=== PATIENT | male | born 1940 | race Caucasian/White ===

== ENCOUNTER 2016-09-18 14:55 | Inpatient (IN) | payer MEDICARE ==
[~2016-09-18] VITALS: Ht 172.7 cm; Wt 94.8 kg
[~2016-09-18 14:55] MED LIST changes: -ASPI325T4 PO; -NITR0.4T SL; -PRAS10TA4 PO; +PRAS10TA9 PO
[2016-09-18] MEDS ORDERED: HEPARIN for IV BOLUS 10,000 UNIT/10 ML VIAL. IV PRN ×2 (15:45)
[2016-09-18] MEDS ORDERED: HEPARIN 25,000UTS/500ML PREMIX 500 ML IV PRN (15:45)
[2016-09-18] MEDS ORDERED: HEPARIN for IV BOLUS 10,000 UNIT/10 ML VIAL. IV ONE (15:45)
[2016-09-18 16:52] LABS: BASO % 1 % (0-3); EOS % 1 % (0-3); LYMPH # 1.5 x10^3/uL (1.0-4.8); LYMPH % 32 % (24-48); MEAN CORPUSCULAR HEMOGLOBIN 31 pg (25-35); MEAN CORPUSCULAR HGB CONC 33 g/dL (31-37); MEAN CORPUSCULAR VOLUME 91 fL (79-100); MONO % 9 % (0-9); NEUT % 57 % (31-73); PLATELET COUNT 115 x10^3/uL (140-400); RED BLOOD COUNT 4.61 x10^6/uL (4.30-5.70); RED CELL DISTRIBUTION WIDTH 14.4 % (11.5-14.5); WHITE BLOOD COUNT 4.9 x10^3/uL (4.0-11.0)
[2016-09-18 17:06] LABS: INR 1.3 (0.8-1.1); PROTHROMBIN TIME PATIENT 15.7 SEC (11.7-14.0)
[2016-09-18 17:07] LABS: CALCIUM 9.3 mg/dL (8.5-10.1); CREATININE 1.2 mg/dL (0.7-1.3); GFR 58.7; POTASSIUM 4.6 mmol/L (3.5-5.1)
[2016-09-18] MEDS ORDERED: ONDANSETRON PF 4 MG/2 ML VIAL. IV PRN (17:30)
[2016-09-18] MEDS ORDERED: MORPHINE SULFATE 2 MG/ML DISP.SYRIN. IV PRN (17:30)
[2016-09-18] MEDS ORDERED: ANTI-COAG MONITOR BY PHARMACY. MC PRN (17:45)
[2016-09-18 19:10] VITALS: BP 183/92
[2016-09-18 19:15] VITALS: BP 183/92
[2016-09-18] MEDS ORDERED: ATOR10TA60 PO (20:11)
[2016-09-18] MEDS ORDERED: NITR0.4T SL (20:11)
[2016-09-18] MEDS ORDERED: METF500T4 PO (20:23)
[2016-09-18] MEDS ORDERED: GLYB5TAB3 PO (20:23)
[2016-09-18] MEDS ORDERED: METO25TA4 PO (20:23)
[2016-09-18] MEDS ORDERED: LOSA100T6 PO (20:23)
[2016-09-18] MEDS ORDERED: ASPI325T4 PO (20:23)
--- NOTE | 2016-09-18 21:09 | PHYS DOC ---
Past Medical History Past Medical History: Diabetes-Type II, High Cholesterol, Hypertension, HI Past Surgical History: Appendectomy, Coronary Bypass Surgery, Other Additional Past Surgical Histo: ORAL SX, SKIN CANCER, STENT X9 Alcohol Use: Rarely Drug Use: None Adult General Chief Complaint Chief Complaint: LOWER EXTREMITY SWELLING HPI HPI Patient is a 76 year old male who presents with DVT. The patient reports 2 day history of LLE swelling. Denies significant associated pain or erythema or warmth. Denies chest pain or shortness of breath. His chief recordist Dr. Guardado ordered US which was performed as outpatient, demonstrating extensive LLE DVT. The patient had CABG in 03/2016, no other recent surgeries, hospitalizations, travel. Nonsmoker. Takes aspirin & plavix. No history of DVT/PE. PCP is DR. River. Review of Systems Review of Systems Constitutional: Denies fever or chills Eyes: Denies change in visual acuity HENT: Denies nasal congestion or sore throat Respiratory: Denies cough or shortness of breath Cardiovascular: Denies chest pain GI: Denies abdominal pain, nausea, vomiting, bloody stools or diarrhea Musculoskeletal: Reports LLE swelling Integument: Denies rash or skin lesions Neurologic: Denies headache, focal weakness or sensory changes Allergies Allergies Allergies Coded Allergies Type Severity Reaction Last Updated Verified No Known Drug Allergies 04/02/16 No Physical Exam Physical Exam Constitutional: Well developed, well nourished, no acute distress, non-toxic appearance. HENT: Normocephalic, atraumatic, bilateral external ears normal, oropharynx moist, nose normal. Eyes: PERRLA, EOMI, conjunctiva normal, no discharge. Neck: supple, no stridor. Cardiovascular: RRR, no murmurs, no edema. Lungs & Thorax: LCTAB, no wheezing, no respiratory distress. Abdomen: soft, nontender, nondistended. Skin: Warm, dry, no erythema, no rash. Back: No tenderness. Extremities: No tenderness, no edema. Neurologic: Alert and oriented X 3, no focal deficits noted. Psychologic: Affect normal, judgement normal, mood normal. Current Patient Data Vital Signs Vital Signs Date Time Temp Pulse Resp B/P Pulse Ox O2 Delivery O2 Flow Rate FiO2 09/18/16 15:13 97.7 84 18 172/102 95 Room Air 97.7 EKG EKG [] Radiology/Procedures Radiology/Procedures PROCEDURE: VENOUS LOWER EXTREMITY LEFT PROCEDURE Left lower extremity venous Doppler sonogram. HISTORY Pain. TECHNIQUE Grayscale and color Doppler sonographic imaging of the left lower extremity veins with spectral waveform analysis was performed. COMPARISON None. FINDINGS There is venous thrombus involving the left iliac, common femoral, superficial femoral, peroneal and greater saphenous veins. IMPRESSION Extensive left lower extremity deep and superficial venous thrombosis. This information was communicated to the referring physician, Dr. Guardado, by the president ergonomic consulting at the time of the exam. Electronically signed by: Dayna Oliveira (Sep 18, 2016 14:44:36) DICTATED and SIGNED BY: DAYNA OLIVEIRA MD DATE: 09/18/16 1444 [] Course & Med Decision Making Course & Med Decision Making Pertinent Labs and Imaging studies reviewed. (See chart for details) The patient presents with DVT. Obtained labs. Recommended admission for management of extensive DVT. At this time vitals are stable, not tachycardic or hypoxic, no symptoms of PE. Discussed with Dr. Remy who agrees to admit to inpatient status, requested initiation of lovenox. The patient is admitted in stable condition. [] Dragon Disclaimer Dragon Disclaimer This electronic medical record was generated, in whole or in part, using a voice recognition dictation system. Departure Departure Impression: Primary Impression: Deep venous thrombosis Disposition: ADMITTED INPATIENT Condition: STABLE DEBI SALDANA MD Sep 18, 2016 21:09
[2016-09-18] MEDS ORDERED: ACETAMINOPHEN 325 MG TABLET. PO PRN (22:00)
[2016-09-18] MEDS ORDERED: NITROGLYCERIN SUBLINGUAL 0.4 MG BOTTLE OF 25. SL PRN (22:00)
[2016-09-18] MEDS ORDERED: hydrALAZINE 20 MG/ML VIAL. IVP PRN (22:00)
[2016-09-18] MEDS: glyBURIDE 5 MG TABLET PO SCH (22:25)
[2016-09-18] MEDS: ASPIRIN CHEWABLE 81 MG TABLET. PO SCH (22:25)
[2016-09-18] MEDS: ATORVASTATIN CALCIUM 10 MG TABLET. PO SCH (22:25)
[2016-09-18] MEDS: METOPROLOL TART IMMED RELEASE 25 MG TABLET. PO SCH (22:26)
[2016-09-18] MEDS: LOSARTAN POTASSIUM 50 MG TABLET. PO SCH (22:27)
[2016-09-18 22:46] VITALS: BP 149/76
--- NOTE | 2016-09-18 23:52 | HP ---
ADMIT DATE: 09/18/2016 CHIEF COMPLAINT: Leg swelling. HISTORY OF PRESENT ILLNESS: The patient is a 76-year-old gentleman who had a CABG done here at [facility] in March of last year. He had noticed increased swelling in his lower extremities off and on. He relates that this had been alternating. But, in the past couple of days, he had increased swelling on the left and his decided to call Dr. 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 He was advised to obtain an ultrasound of the lower extremities to rule out a DVT. This was done today on an outpatient basis, he indeed was found to have extensive left lower extremity deep and superficial venous thrombosis from the left ___ and greater saphenous veins all the way up to the left iliac. He was therefore admitted for further management and care. The patient denies any shortness of breath, any pain in his leg, any abdominal pain or other symptoms. PAST MEDICAL HISTORY: CAD, status post cath with stents as well as CABG in 03/2016, hypertension, diabetes mellitus, hypercholesterolemia. He is status post appendectomy and skin cancer removal. FAMILY HISTORY: Mother with probable fatal ID at age 82. No family history of DVTs or PEs. SOCIAL HISTORY: No toxic habits, never smoked. ALLERGIES: No known drug allergies. MEDICATIONS: MAR reconciled with home medications. REVIEW OF SYSTEMS: Save for leg swelling, the patient currently does not have any symptoms in entire organ system review. PHYSICAL EXAMINATION: VITAL SIGNS: From today show a blood pressure of currently 183/92, heart rate of 78, respiratory rate at 18. He is afebrile, satting 96% on room air. GENERAL: This is a well-nourished 76-year-old gentleman, alert and oriented, in no acute distress. HEENT: Shows no scleral icterus. NECK: Supple. LUNGS: Clear to auscultation bilaterally. HEART: Has regular rate and rhythm without any murmurs. ABDOMEN: Has positive bowel sounds, soft, nontender. EXTREMITIES: Show 1+ edema in the left lower extremity to mid [place]. SKIN: Warm, soft and dry. A Few petechiae noted on the left distal lower extremity. LABORATORY DATA: CBC with a WBC of 4.9, hemoglobin 14, platelets of 115. Of note, platelets have been low in March as well in the 77-132 range. Chemistries with a BUN and creatinine of 28 and 1.2, normal electrolytes, glucose at 105. Coags today with an INR of 1.7. ASSESSMENT AND PLAN: The patient is a 76-year-old gentleman with apparently unprovoked deep vein thrombosis in his lower extremity. He denies any injury, recent surgery or immobility. Without any family history, suspicion of likelihood of familial disorder is essentially none. I would place him on anticoagulation for 3-6 months. Although, this can be treated on an outpatient basis right from the start, we have admitted him as his clot burden in his big vein is this significant and risk for PE high. After 24 hours on Lovenox, he should be stable enough to mobilize and be discharged to home. Coumadin would be one choice versus a Xa inhibitor such as Pradaxa. Latter would be preferable if his insurance is amenable to pay. We will reevaluate in the morning and check with pharmacy. For his recent heart history, all his home medications will be continued. For his high blood pressure, he missed his evening dose of Lopressor, will give that. Monitor blood pressure, has hydralazine p.r.n. available as well. Diabetes is currently well controlled. We will continue oral medications for now. ENA DALE MD DR: RICARDO/nts JOB#: [id number] / [id number] KRISTIAN Valenzuela MD, Richard MTDD
[2016-09-19 02:58] VITALS: BP 146/84
[2016-09-19 04:10] LABS: BASO % 0 % (0-3); EOS % 2 % (0-3); HEMATOCRIT 41.4 % (39.0-53.0); HEMOGLOBIN 13.6 g/dL (13.0-17.5); LYMPH # 1.7 x10^3/uL (1.0-4.8); LYMPH % 38 % (24-48); MEAN CORPUSCULAR HEMOGLOBIN 30 pg (25-35); MEAN CORPUSCULAR HGB CONC 33 g/dL (31-37); MEAN CORPUSCULAR VOLUME 92 fL (79-100); MONO % 10 % (0-9); NEUT % 50 % (31-73); PLATELET COUNT 103 x10^3/uL (140-400); RED CELL DISTRIBUTION WIDTH 14.7 % (11.5-14.5); WHITE BLOOD COUNT 4.5 x10^3/uL (4.0-11.0)
[2016-09-19 04:17] LABS: CALCIUM 9.1 mg/dL (8.5-10.1); CREATININE 1.2 mg/dL (0.7-1.3); GFR 58.7; POTASSIUM 3.8 mmol/L (3.5-5.1)
[2016-09-19 07:45] VITALS: BP 156/92
[2016-09-19] MEDS: METFORMIN 500 MG TABLET. PO SCH ×2 (08:00→16:19)
[2016-09-19] MEDS: METOPROLOL TART IMMED RELEASE 25 MG TABLET. PO SCH ×2 (08:37→21:07)
--- NOTE | 2016-09-19 09:39 | PDOC2 ---
MIROSLAVA FAY TELEVISION TUBE INSPECTOR 09/19/16 0939: CARDIAC CONSULT DATE OF CONSULT Date of Consult DATE: 09/19/16 TIME: 09:28 REASON FOR CONSULT Reason for Consult: DVT; pt requested REFERRING PHYSICIAN Referring Physician: Dr. Remy SOURCE Source: Chart review, Patient HISTORY OF PRESENT ILLNESS HISTORY OF PRESENT ILLNESS This is a 76 yo male, well known to our service, who recently underwent CABG X 3 with SMITH to LAD, SVG to RPDA and SVG to OM2, who contacted our office with complaints of LLE swelling for the last couple of days. Denies any pain, numbness, or tingling in the affected extremity. Patient was scheduled for outpatient lower-extremity doppler, which revealed extensive DVT in the LLE. Patient was referred to the ED for further treatment. Patient denies any SOA, UGZMAN, dizziness, chest pain, or palpitations. No recent travel. 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 Reports he has been feel very well recently, aside from the LLE edema. PAST MEDICAL HISTORY Cardiovascular: CAD (s/p previous stenting and CABG), HTN, Hyperlipidemia Pulmonary: No pertinent hx GI: No pertinent hx Heme/Onc: No pertinent hx Hepatobiliary: No pertinent hx Psych: No pertinent hx Musculoskeletal: Osteoarthritis Rheumatologic: No pertinent hx Infectious disease: No pertinent hx ENT: No pertinent hx Renal/: No pertinent hx Endocrine: Diabetes Dermatology: No pertinent hx PAST SURGICAL HISTORY Past Surgical History: Appendectomy, CABG (CABG X 3 with SMITH to LAD, SVG to RPDA and SVG to OM2), Total knee replacement (left ), Colectomy FAMILY HISTORY Family History: Cancer, Coronary Artery Disease SOCIAL HISTORY Smoke: No ALCOHOL: none Drugs: None Lives: with Family CURRENT MEDICATIONS CURRENT MEDICATIONS Current Medications Medications (Trade) Dose Ordered Sig/Heriberto Route PRN Reason Start Time Stop Time Status Last Admin Dose Admin Enoxaparin Sodium (Lovenox 100mg Syringe) 100 mg 1X ONCE SQ 09/18/16 16:00 09/18/16 16:01 DC 09/18/16 17:11 Enoxaparin Sodium (Lovenox 100mg Syringe) 100 mg Q12HR SQ 09/18/16 23:00 09/19/16 08:40 Info (Anti-Coagulation Monitoring By Pharmacy) 1 each PRN DAILY PRN MC SEE COMMENTS 4/25/17 17:45 09/19/16 08:45 Aspirin (Children'S Aspirin) 81 mg HS PO 09/18/16 22:15 09/18/16 22:25 Atorvastatin Calcium (Lipitor) 10 mg HS PO 09/18/16 22:15 09/18/16 22:25 Glyburide (Diabeta) 5 mg HS PO 09/18/16 22:15 09/18/16 22:25 Metoprolol Tartrate (Lopressor) 25 mg BID PO 09/18/16 22:15 09/19/16 08:37 Losartan Potassium (Cozaar) 100 mg HS PO 09/18/16 22:15 09/18/16 22:27 ALLERGIES ALLERGIES: Coded Allergies: No Known Drug Allergies (Unverified , 04/02/16) ROS Review of System 14 point ROS conducted with pertinent positives noted above in HPI. PHYSICAL EXAM General: Alert, Oriented X3, Cooperative HEENT: Atraumatic, Mucous membr. moist/pink Lungs: Clear to auscultation, Normal air movement Heart: Regular rate, Normal S1, Normal S2 Abdomen: Soft, No tenderness Extremities: Normal pulses, Other (1-2+ LLE edema ) Skin: No breakdown, No significant lesion Neuro: Normal speech, Sensation intact Psych/Mental Status: Mental status NL, Mood NL MUSCULOSKELETAL: Osteoarthritic changes both hands VITALS VITALS Vital Signs Date Time Temp Pulse Resp B/P Pulse Ox O2 Delivery O2 Flow Rate FiO2 09/19/16 08:37 76 156/92 09/19/16 07:51 Room Air 09/19/16 07:45 97.9 20 96 97.9 LABS Lab: Laboratory Tests Test 09/18/16 16:38 09/19/16 03:03 09/19/16 03:05 White Blood Count 4.9x10^3/uL (4.0-11.0) 4.5x10^3/uL (4.0-11.0) Red Blood Count 4.61x10^6/uL (4.30-5.70) 4.50x10^6/uL (4.30-5.70) Hemoglobin 14.0g/dL (13.0-17.5) 13.6g/dL (13.0-17.5) Hematocrit 42.0% (39.0-53.0) 41.4% (39.0-53.0) Mean Corpuscular Volume 91fL (79-100) 92fL (79-100) Mean Corpuscular Hemoglobin 31pg (25-35) 30pg (25-35) Mean Corpuscular Hemoglobin Concent 33g/dL (31-37) 33g/dL (31-37) Red Cell Distribution Width 14.4% (11.5-14.5) 14.7% (11.5-14.5) Platelet Count 115x10^3/uL (140-400) 103x10^3/uL (140-400) Neutrophils (%) (Auto) 57% (31-73) 50% (31-73) Lymphocytes (%) (Auto) 32% (24-48) 38% (24-48) Monocytes (%) (Auto) 9% (0-9) 10% (0-9) Eosinophils (%) (Auto) 1% (0-3) 2% (0-3) Basophils (%) (Auto) 1% (0-3) 0% (0-3) Neutrophils # (Auto) 2.8x10^3uL (1.8-7.7) 2.2x10^3uL (1.8-7.7) Lymphocytes # (Auto) 1.5x10^3/uL (1.0-4.8) 1.7x10^3/uL (1.0-4.8) Monocytes # (Auto) 0.4x10^3/uL (0.0-1.1) 0.5x10^3/uL (0.0-1.1) Eosinophils # (Auto) 0.1x10^3/uL (0.0-0.7) 0.1x10^3/uL (0.0-0.7) Basophils # (Auto) 0.0x10^3/uL (0.0-0.2) 0.0x10^3/uL (0.0-0.2) Prothrombin Time 15.7SEC (11.7-14.0) Prothromb Time International Ratio 1.3 (0.8-1.1) Activated Partial Thromboplast Time 37SEC (24-38) Sodium Level 138mmol/L (136-145) 140mmol/L (136-145) Potassium Level 4.6mmol/L (3.5-5.1) 3.8mmol/L (3.5-5.1) Chloride Level 103mmol/L (98-107) 104mmol/L (98-107) Carbon Dioxide Level 25mmol/L (21-32) 27mmol/L (21-32) Anion Gap 10 (6-14) 9 (6-14) Blood Urea Nitrogen 28mg/dL (8-26) 24mg/dL (8-26) Creatinine 1.2mg/dL (0.7-1.3) 1.2mg/dL (0.7-1.3) Estimated GFR (Cockcroft-Gault) 58.7 58.7 Glucose Level 105mg/dL (70-99) 64mg/dL (70-99) Calcium Level 9.3mg/dL (8.5-10.1) 9.1mg/dL (8.5-10.1) ECHOCARDIOGRAM ECHOCARDIOGRAM DATE: 03/30/16 1632 <Conclusion> Limmited 2D echo. Basal inferior and posterior wall hypokinesis with ejection fraction estimated at 50-55%. Doppler and Color Flow revealed mild aortic regurgitation. There is no evidence of significant pericardial effusion. DATE: 03/28/16 1442 <Conclusion> Hypokinetic basal inferior and posterior james. The Ejection Fraction is 55%. Transmitral Doppler flow pattern is Grade I-abnormal relaxation pattern. Mild aortic regurgitation. Trace tricuspid regurgitation. There is no evidence of significant pericardial effusion. HEART CATH HEART CATH FINDINGS 1. Hemodynamics: Left ventricular end-diastolic pressure 23 mmHg. No pullback gradient across the aortic valve. 2. Left ventriculography: Diaphragmatic wall hypokinesis with ejection fraction estimated at 55%. No significant mitral regurgitation seen. 3. Coronary angiography: a. The left main coronary artery arose from the left sinus of Valsalva, gave rise to the left anterior descending and left circumflex arteries and did not show any significant stenosis. b. The left anterior descending artery showed 70% stenosis in the proximal segment. The previously placed stent in the midsegment showed a discrete shelflike 80% in-stent restenosis. The previously placed stent in the diagonal branch was patent. c. The left circumflex artery showed widely patent stent in the midsegment. Just proximal to this stent there was a 60% stenosis noted. There was a widely patent stent noted in the. Was marginal branch. The second obtuse marginal branch showed 50% stenosis in the proximal segment. d. The right coronary artery was a dominant vessel arising from the right sinus of Valsalva that showed a long stented proximal and mid segments that showed 30% in-stent restenosis in the proximal to midsegment. The distal segment showed several areas of critical 90-95% stenoses in the proximal segment of the posterior descending branch showed 95-99% stenosis. There appeared to be thrombus within the distal RCA. Conclusion 1. Severe three-vessel coronary artery disease as described above 2. Diaphragmatic wall hypokinesis with ejection fraction estimated at 50-55%. DATE: 03/30/16922 ASSESSMENT/PLAN ASSESSMENT/PLAN 1. DVT Extensive clot involving LLE on treatment dose Lovenox OAC to begin today continued management per PCP 2. CAD s/p CABG X 3 with SMITH to LAD, SVG to RPDA and SVG to OM2 04/02/16 stable. CP free continue secondary prevention measures 3. HTN home antiHTN therapy resumed 4. HLD LDLs = 71 continue statin therapy 5. DM, II oral control agents 6. carotid disease, mild to moderate, < 50% bilaterally Problems: KRISTIAN DE JESUS MD 09/19/16 5909: CARDIAC CONSULT ALLERGIES ALLERGIES: Coded Allergies: No Known Drug Allergies (Unverified , 04/02/16) ASSESSMENT/PLAN ASSESSMENT/PLAN Patient seen and examined. Agree with METER INSPECTOR's assessment and plan. Patient with recent CABG has been admitted with acute left lower extremity DVT. Continue anticoagulation per IM. CAD status appears stable. Telemetry did not show any significant arrhythmia so far. Continue current medical regimen. Thank you for your consultation.. Problems: MIROSLAVA FAY APRN Sep 19, 2016 09:39 KRISTIAN DE JESUS MD Sep 19, 2016 16:49
[2016-09-19 10:58] VITALS: BP 166/91
[2016-09-19] MEDS ORDERED: WARFARIN 5 MG TABLET. PO ONE (14:15)
--- NOTE | 2016-09-19 14:17 | PDOC ---
PROGRESS NOTES Chief Complaint Chief Complaint cc: Lower extremity edema, DVT HTN Diabetes mellitus CAD with prior CABG and PCI/stents prior Skin cancer s/p resections Hypercholesterolemia History of Present Illness History of Present Illness Patient seen and evaluated at bedside. Patient resting in no apparent distress. Patient notes decreased swelling to his legs. No complaints at this time. d/w nurse about plan of care. Vitals Vitals Vital Signs Date Time Temp Pulse Resp B/P Pulse Ox O2 Delivery O2 Flow Rate FiO2 09/19/16 10:58 97.8 71 18 166/91 96 Room Air 97.8 Physical Exam General: Alert, Oriented X3, Cooperative Heart: Regular rate, Normal S1, Normal S2 Lungs: Clear, Other (negative chest retractions and/or other accessory muscle use. ) Abdomen: Soft, No tenderness Extremities: Normal pulses, Other (1-2+ LLE edema, improved. No warmth to the touch. Negative calf tenderness to palpation bilaterally. ) Skin: No breakdown, No significant lesion Labs LABS Laboratory Tests Test 09/18/16 16:38 09/19/16 03:03 09/19/16 03:05 White Blood Count 4.9x10^3/uL (4.0-11.0) 4.5x10^3/uL (4.0-11.0) Red Blood Count 4.61x10^6/uL (4.30-5.70) 4.50x10^6/uL (4.30-5.70) Hemoglobin 14.0g/dL (13.0-17.5) 13.6g/dL (13.0-17.5) Hematocrit 42.0% (39.0-53.0) 41.4% (39.0-53.0) Mean Corpuscular Volume 91fL (79-100) 92fL (79-100) Mean Corpuscular Hemoglobin 31pg (25-35) 30pg (25-35) Mean Corpuscular Hemoglobin Concent 33g/dL (31-37) 33g/dL (31-37) Red Cell Distribution Width 14.4% (11.5-14.5) 14.7% (11.5-14.5) Platelet Count 115x10^3/uL (140-400) 103x10^3/uL (140-400) Neutrophils (%) (Auto) 57% (31-73) 50% (31-73) Lymphocytes (%) (Auto) 32% (24-48) 38% (24-48) Monocytes (%) (Auto) 9% (0-9) 10% (0-9) Eosinophils (%) (Auto) 1% (0-3) 2% (0-3) Basophils (%) (Auto) 1% (0-3) 0% (0-3) Neutrophils # (Auto) 2.8x10^3uL (1.8-7.7) 2.2x10^3uL (1.8-7.7) Lymphocytes # (Auto) 1.5x10^3/uL (1.0-4.8) 1.7x10^3/uL (1.0-4.8) Monocytes # (Auto) 0.4x10^3/uL (0.0-1.1) 0.5x10^3/uL (0.0-1.1) Eosinophils # (Auto) 0.1x10^3/uL (0.0-0.7) 0.1x10^3/uL (0.0-0.7) Basophils # (Auto) 0.0x10^3/uL (0.0-0.2) 0.0x10^3/uL (0.0-0.2) Prothrombin Time 15.7SEC (11.7-14.0) Prothromb Time International Ratio 1.3 (0.8-1.1) Activated Partial Thromboplast Time 37SEC (24-38) Sodium Level 138mmol/L (136-145) 140mmol/L (136-145) Potassium Level 4.6mmol/L (3.5-5.1) 3.8mmol/L (3.5-5.1) Chloride Level 103mmol/L (98-107) 104mmol/L (98-107) Carbon Dioxide Level 25mmol/L (21-32) 27mmol/L (21-32) Anion Gap 10 (6-14) 9 (6-14) Blood Urea Nitrogen 28mg/dL (8-26) 24mg/dL (8-26) Creatinine 1.2mg/dL (0.7-1.3) 1.2mg/dL (0.7-1.3) Estimated GFR (Cockcroft-Gault) 58.7 58.7 Glucose Level 105mg/dL (70-99) 64mg/dL (70-99) Calcium Level 9.3mg/dL (8.5-10.1) 9.1mg/dL (8.5-10.1) Review of Systems Review of Systems (+) b/l lower extremity edema Denies chest pain, palpitations, sob, abdominal pain, n/v/d, or fever/chills. Assessment and Plan Assessmemt and Plan Problems Medical Problems: (1) Deep venous thrombosis Status: Acute (2) DVT (deep venous thrombosis) Status: Acute Assessment: 1.) LLE deep and superficial venous thrombosis 2.) CAD, prior CABG and PCI stenting 3.) Diabetes Mellitus type II 4.) HTN 5.) HLD Plan: 1.) continue therapeutic lovenox, bridge to coumadin 5mg PO today. Pharmacy to dose thereafter 2.) continue telemetry monitoring 3.) continue home medications as appropriate 4.) limit mobility secondary to clot burden 5.) check AM labs. 6.) appreciate subspecialty input 7.) probable discharge tomorrow is sufficiently anticoagulated. Problems: Comment Review of Relevant I have reviewed the following items emily (where applicable) has been applied. Labs Laboratory Tests Test 09/18/16 16:38 09/19/16 03:03 09/19/16 03:05 White Blood Count 4.9x10^3/uL (4.0-11.0) 4.5x10^3/uL (4.0-11.0) Red Blood Count 4.61x10^6/uL (4.30-5.70) 4.50x10^6/uL (4.30-5.70) Hemoglobin 14.0g/dL (13.0-17.5) 13.6g/dL (13.0-17.5) Hematocrit 42.0% (39.0-53.0) 41.4% (39.0-53.0) Mean Corpuscular Volume 91fL (79-100) 92fL (79-100) Mean Corpuscular Hemoglobin 31pg (25-35) 30pg (25-35) Mean Corpuscular Hemoglobin Concent 33g/dL (31-37) 33g/dL (31-37) Red Cell Distribution Width 14.4% (11.5-14.5) 14.7% (11.5-14.5) Platelet Count 115x10^3/uL (140-400) 103x10^3/uL (140-400) Neutrophils (%) (Auto) 57% (31-73) 50% (31-73) Lymphocytes (%) (Auto) 32% (24-48) 38% (24-48) Monocytes (%) (Auto) 9% (0-9) 10% (0-9) Eosinophils (%) (Auto) 1% (0-3) 2% (0-3) Basophils (%) (Auto) 1% (0-3) 0% (0-3) Neutrophils # (Auto) 2.8x10^3uL (1.8-7.7) 2.2x10^3uL (1.8-7.7) Lymphocytes # (Auto) 1.5x10^3/uL (1.0-4.8) 1.7x10^3/uL (1.0-4.8) Monocytes # (Auto) 0.4x10^3/uL (0.0-1.1) 0.5x10^3/uL (0.0-1.1) Eosinophils # (Auto) 0.1x10^3/uL (0.0-0.7) 0.1x10^3/uL (0.0-0.7) Basophils # (Auto) 0.0x10^3/uL (0.0-0.2) 0.0x10^3/uL (0.0-0.2) Prothrombin Time 15.7SEC (11.7-14.0) Prothromb Time International Ratio 1.3 (0.8-1.1) Activated Partial Thromboplast Time 37SEC (24-38) Sodium Level 138mmol/L (136-145) 140mmol/L (136-145) Potassium Level 4.6mmol/L (3.5-5.1) 3.8mmol/L (3.5-5.1) Chloride Level 103mmol/L (98-107) 104mmol/L (98-107) Carbon Dioxide Level 25mmol/L (21-32) 27mmol/L (21-32) Anion Gap 10 (6-14) 9 (6-14) Blood Urea Nitrogen 28mg/dL (8-26) 24mg/dL (8-26) Creatinine 1.2mg/dL (0.7-1.3) 1.2mg/dL (0.7-1.3) Estimated GFR (Cockcroft-Gault) 58.7 58.7 Glucose Level 105mg/dL (70-99) 64mg/dL (70-99) Calcium Level 9.3mg/dL (8.5-10.1) 9.1mg/dL (8.5-10.1) Laboratory Tests Test 09/18/16 16:38 09/19/16 03:03 09/19/16 03:05 White Blood Count 4.9x10^3/uL (4.0-11.0) 4.5x10^3/uL (4.0-11.0) Red Blood Count 4.61x10^6/uL (4.30-5.70) 4.50x10^6/uL (4.30-5.70) Hemoglobin 14.0g/dL (13.0-17.5) 13.6g/dL (13.0-17.5) Hematocrit 42.0% (39.0-53.0) 41.4% (39.0-53.0) Mean Corpuscular Volume 91fL (79-100) 92fL (79-100) Mean Corpuscular Hemoglobin 31pg (25-35) 30pg (25-35) Mean Corpuscular Hemoglobin Concent 33g/dL (31-37) 33g/dL (31-37) Red Cell Distribution Width 14.4% (11.5-14.5) 14.7% (11.5-14.5) Platelet Count 115x10^3/uL (140-400) 103x10^3/uL (140-400) Neutrophils (%) (Auto) 57% (31-73) 50% (31-73) Lymphocytes (%) (Auto) 32% (24-48) 38% (24-48) Monocytes (%) (Auto) 9% (0-9) 10% (0-9) Eosinophils (%) (Auto) 1% (0-3) 2% (0-3) Basophils (%) (Auto) 1% (0-3) 0% (0-3) Neutrophils # (Auto) 2.8x10^3uL (1.8-7.7) 2.2x10^3uL (1.8-7.7) Lymphocytes # (Auto) 1.5x10^3/uL (1.0-4.8) 1.7x10^3/uL (1.0-4.8) Monocytes # (Auto) 0.4x10^3/uL (0.0-1.1) 0.5x10^3/uL (0.0-1.1) Eosinophils # (Auto) 0.1x10^3/uL (0.0-0.7) 0.1x10^3/uL (0.0-0.7) Basophils # (Auto) 0.0x10^3/uL (0.0-0.2) 0.0x10^3/uL (0.0-0.2) Prothrombin Time 15.7SEC (11.7-14.0) Prothromb Time International Ratio 1.3 (0.8-1.1) Activated Partial Thromboplast Time 37SEC (24-38) Sodium Level 138mmol/L (136-145) 140mmol/L (136-145) Potassium Level 4.6mmol/L (3.5-5.1) 3.8mmol/L (3.5-5.1) Chloride Level 103mmol/L (98-107) 104mmol/L (98-107) Carbon Dioxide Level 25mmol/L (21-32) 27mmol/L (21-32) Anion Gap 10 (6-14) 9 (6-14) Blood Urea Nitrogen 28mg/dL (8-26) 24mg/dL (8-26) Creatinine 1.2mg/dL (0.7-1.3) 1.2mg/dL (0.7-1.3) Estimated GFR (Cockcroft-Gault) 58.7 58.7 Glucose Level 105mg/dL (70-99) 64mg/dL (70-99) Calcium Level 9.3mg/dL (8.5-10.1) 9.1mg/dL (8.5-10.1) Medications Current Medications Heparin Sodium (Porcine) 7750 unit 7,750 unit 1X ONCE IV ; Start 09/18/16 at 15 :45; Stop 09/18/16 at 15:52; Status DC Heparin Sodium/ Dextrose 500 ml @ 0 mls/hr CONT PRN IV SEE I/O RECORD; Start at 15:45; Stop 09/18/16 at 15:52; Status DC Heparin Sodium (Porcine) (Heparin Sodium) 2,900 unit PRN Q6HRS PRN IV FOR UFH LEVEL LESS THAN 0.2; Start 09/18/16 at 15:45; Stop 09/18/16 at 15:52; Status DC Heparin Sodium (Porcine) (Heparin Sodium) 1,450 unit PRN Q6HRS PRN IV FOR UFH LEVEL 0.2 - 0.29; Start 09/18/16 at 15:45; Stop 09/18/16 at 15:52; Status DC Warfarin Sodium (Coumadin Per Pharmacy) 1 each PRN DAILY PRN MC PER PROTOCOL; Start 09/18/16 at 15:45; Stop 09/18/16 at 15:45; Status DC Enoxaparin Sodium (Lovenox Per Pharmacy Treatment Dosing) 1 each PRN DAILY PRN MC SEE COMMENTS; Start 09/18/16 at 16:00 Enoxaparin Sodium (Lovenox 100mg Syringe) 100 mg 1X ONCE SQ Last administered on 09/18/16t 17:11; Start 09/18/16 at 16:00; Stop 09/18/16 at 16:01; Status DC Ondansetron HCl (Zofran) 4 mg PRN Q8HRS PRN IV NAUSEA/VOMITING; Start 09/18/16 at 17:30; Stop 09/19/16 at 17:29 Morphine Sulfate 2 mg PRN Q2HR PRN IV PAIN; Start 09/18/16 at 17:30; Stop 09/18 at 22:03; Status DC Enoxaparin Sodium (Lovenox 100mg Syringe) 100 mg Q12HR SQ Last administered on 09/19/16t 08:40; Start 09/18/16 at 23:00 Info (Anti-Coagulation Monitoring By Pharmacy) 1 each PRN DAILY PRN MC SEE COMMENTS Last administered on 09/19/16 08:45; Start 09/18/16 at 17:45 Aspirin (Children'S Aspirin) 81 mg HS PO Last administered on 09/18/16 22:25; Start 09/18/16 at 22:15 Atorvastatin Calcium (Lipitor) 10 mg HS PO Last administered on 09/18/16 22:25 ; Start 09/18/16 at 22:15 Glyburide (Diabeta) 5 mg HS PO Last administered on 09/18/16 22:25; Start at 22:15 Metformin HCl (Glucophage) 500 mg BIDWMEALS PO ; Start 09/19/16 at 08:00 Metoprolol Tartrate (Lopressor) 25 mg BID PO Last administered on 09/19/16 08: 37; Start 09/18/16 at 22:15 Nitroglycerin (Nitrostat) 0.4 mg DAILY PRN SL CHEST PAIN; Start 09/18/16 at 22: 00 Losartan Potassium (Cozaar) 100 mg HS PO Last administered on 09/18/16 22:27; Start 09/18/16 at 22:15 Hydralazine HCl (Apresoline) 10 mg PRN Q4HRS PRN IVP ELEVATED BP, SEE COMMENTS ; Start 09/18/16 at 22:00 Acetaminophen (Tylenol) 650 mg PRN Q6HRS PRN PO pain; Start 09/18/16 at 22:00 Warfarin Sodium (Coumadin Per Pharmacy) 1 each PRN DAILY PRN MC SEE COMMENTS; Start 09/19/16 at 12:15 Warfarin Sodium (Coumadin) 7.5 mg 1X WARF ONCE PO ; Start 09/19/16 at 16:00; Stop 09/19/16 at 16:01 Active Scripts Active Reported Metoprolol Tartrate 25 Mg Tablet 25 Mg PO BID Aspirin 325 Mg Tablet 1 Tab PO HS Glyburide 5 Mg Tablet 5 Mg PO HS Metformin Hcl 500 Mg Tablet 500 Mg PO BID Losartan Potassium 100 Mg Tablet 100 Mg PO HS 30 Days Atorvastatin Calcium 10 Mg Tablet 10 Mg PO HS Nitrostat (Nitroglycerin) 0.4 Mg Tab.subl 0.4 Mg SL PRN Vitals/I & O Vital Sign - Last 24 Hours 09/18/16 09/18/16 09/18/16 09/18/16 15:13 19:10 19:15 19:15 Temp 97.7 97.7 97.7 97.7 97.7 97.7 Pulse 84 78 78 Resp 18 18 B/P 172/102 183/92 183/92 Pulse Ox 95 96 96 O2 Delivery Room Air Room Air Room Air 09/18/16 09/18/16 09/18/16 09/19/16 22:26 22:27 22:46 02:58 Temp 97.6 97.6 Pulse 76 76 80 72 Resp 18 B/P 149/76 149/76 149/76 146/84 Pulse Ox 94 O2 Delivery Room Air Room Air 09/19/16 09/19/16 09/19/16 09/19/16 07:45 07:51 08:37 10:58 Temp 97.9 97.8 97.9 97.8 Pulse 75 76 71 Resp 18 B/P 156/92 156/92 166/91 Pulse Ox 96 96 O2 Delivery Room Air Room Air Room Air Intake and Output 09/18/16 09/18/16 09/19/16 15:00 23:00 07:00 Intake Total 300 ml Output Total 300 ml Balance 0 ml ISAIAH PHILLIPS K III DO Sep 19, 2016 14:17
[2016-09-19 15:28] VITALS: BP 158/88
[2016-09-19] MEDS ORDERED: WARFARIN 7.5 MG TABLET. PO ONE (16:00)
[2016-09-19 19:23] VITALS: BP 173/87
[2016-09-19] MEDS: glyBURIDE 5 MG TABLET PO SCH (21:07)
[2016-09-19] MEDS: LOSARTAN POTASSIUM 50 MG TABLET. PO SCH (21:07)
[2016-09-19] MEDS: ATORVASTATIN CALCIUM 10 MG TABLET. PO SCH (21:07)
[2016-09-19] MEDS: ASPIRIN CHEWABLE 81 MG TABLET. PO SCH (21:08)
[2016-09-19 23:00] VITALS: BP 148/85
[2016-09-20 02:37] VITALS: BP 129/78
[2016-09-20 06:52] LABS: BASO % 1 % (0-3); EOS % 1 % (0-3); HEMOGLOBIN 14.3 g/dL (13.0-17.5); LYMPH # 1.9 x10^3/uL (1.0-4.8); LYMPH % 38 % (24-48); MEAN CORPUSCULAR HEMOGLOBIN 31 pg (25-35); MEAN CORPUSCULAR HGB CONC 33 g/dL (31-37); MEAN CORPUSCULAR VOLUME 92 fL (79-100); MONO % 10 % (0-9); NEUT % 51 % (31-73); PLATELET COUNT 129 x10^3/uL (140-400); RED BLOOD COUNT 4.68 x10^6/uL (4.30-5.70); RED CELL DISTRIBUTION WIDTH 14.8 % (11.5-14.5); WHITE BLOOD COUNT 5.1 x10^3/uL (4.0-11.0)
[2016-09-20 06:56] LABS: INR 1.4 (0.8-1.1); PROTHROMBIN TIME PATIENT 16.4 SEC (11.7-14.0)
[2016-09-20 07:00] VITALS: BP 147/87
[2016-09-20 07:10] LABS: CREATININE 1.5 mg/dL (0.7-1.3); GFR 45.4; POTASSIUM 4.1 mmol/L (3.5-5.1)
[2016-09-20] MEDS: METOPROLOL TART IMMED RELEASE 25 MG TABLET. PO SCH ×2 (08:41→21:46)
[2016-09-20] MEDS: METFORMIN 500 MG TABLET. PO SCH ×2 (08:41→16:40)
[2016-09-20 10:57] VITALS: BP 149/77
--- NOTE | 2016-09-20 13:15 | PDOC ---
PROGRESS NOTES Chief Complaint Chief Complaint cc: Lower extremity edema, DVT HTN Diabetes mellitus CAD with prior CABG and PCI/stents prior Skin cancer s/p resections Hypercholesterolemia History of Present Illness History of Present Illness Patient seen and evaluated at bedside. Patient resting in no apparent distress. No complaints at this time. Patient's INR is still subtherapeutic. Persuaded him to stay for continued treatment and monitoring. d/w nurse about plan of care. Vitals Vitals Vital Signs Date Time Temp Pulse Resp B/P Pulse Ox O2 Delivery O2 Flow Rate FiO2 09/20/16 10:57 97.6 70 19 149/77 96 Room Air 97.6 Physical Exam General: Alert, Oriented X3, Cooperative Heart: Regular rate, Normal S1, Normal S2 Lungs: Clear, Other (negative chest retractions and/or other accessory muscle use. ) Abdomen: Soft, No tenderness Extremities: Normal pulses, Other (trace ankle edema. No warmth to the touch. Negative calf tenderness to palpation bilaterally. ) Skin: No breakdown, No significant lesion Labs LABS Laboratory Tests Test 09/19/16 17:19 09/19/16 20:54 09/20/16 04:35 09/20/16 08:11 Glucose (Fingerstick) 76mg/dL (70-99) 132mg/dL (70-99) 115mg/dL (70-99) White Blood Count 5.1x10^3/uL (4.0-11.0) Red Blood Count 4.68x10^6/uL (4.30-5.70) Hemoglobin 14.3g/dL (13.0-17.5) Hematocrit 43.0% (39.0-53.0) Mean Corpuscular Volume 92fL (79-100) Mean Corpuscular Hemoglobin 31pg (25-35) Mean Corpuscular Hemoglobin Concent 33g/dL (31-37) Red Cell Distribution Width 14.8% (11.5-14.5) Platelet Count 129x10^3/uL (140-400) Neutrophils (%) (Auto) 51% (31-73) Lymphocytes (%) (Auto) 38% (24-48) Monocytes (%) (Auto) 10% (0-9) Eosinophils (%) (Auto) 1% (0-3) Basophils (%) (Auto) 1% (0-3) Neutrophils # (Auto) 2.6x10^3uL (1.8-7.7) Lymphocytes # (Auto) 1.9x10^3/uL (1.0-4.8) Monocytes # (Auto) 0.5x10^3/uL (0.0-1.1) Eosinophils # (Auto) 0.1x10^3/uL (0.0-0.7) Basophils # (Auto) 0.0x10^3/uL (0.0-0.2) Prothrombin Time 16.4SEC (11.7-14.0) Prothromb Time International Ratio 1.4 (0.8-1.1) Sodium Level 139mmol/L (136-145) Potassium Level 4.1mmol/L (3.5-5.1) Chloride Level 102mmol/L (98-107) Carbon Dioxide Level 25mmol/L (21-32) Anion Gap 12 (6-14) Blood Urea Nitrogen 24mg/dL (8-26) Creatinine 1.5mg/dL (0.7-1.3) Estimated GFR (Cockcroft-Gault) 45.4 Glucose Level 87mg/dL (70-99) Calcium Level 9.0mg/dL (8.5-10.1) Test 09/20/16 11:00 Glucose (Fingerstick) 181mg/dL (70-99) Review of Systems Review of Systems (+) b/l lower extremity edema, resolved. Denies chest pain, sob, palpitations, abdominal pain, n/v/d, or fever/chills. Assessment and Plan Assessmemt and Plan Problems Medical Problems: (1) Deep venous thrombosis Status: Acute (2) DVT (deep venous thrombosis) Status: Acute Assessment: 1.) LLE deep and superficial venous thrombosis 2.) CAD, prior CABG and PCI stenting 3.) Diabetes Mellitus type II 4.) HTN 5.) HLD Plan: 1.) continue therapeutic lovenox, bridge to coumadin. 2.) continue telemetry monitoring 3.) continue home medications as appropriate 4.) limit mobility secondary to clot burden 5.) check AM labs. 6.) appreciate subspecialty input; will get vascular input for further recommendations. 7.) probable discharge tomorrow is sufficiently anticoagulated. Problems: Comment Review of Relevant I have reviewed the following items emily (where applicable) has been applied. Labs Laboratory Tests Test 09/18/16 16:38 09/19/16 03:03 09/19/16 03:05 09/19/16 08:11 White Blood Count 4.9x10^3/uL (4.0-11.0) 4.5x10^3/uL (4.0-11.0) Red Blood Count 4.61x10^6/uL (4.30-5.70) 4.50x10^6/uL (4.30-5.70) Hemoglobin 14.0g/dL (13.0-17.5) 13.6g/dL (13.0-17.5) Hematocrit 42.0% (39.0-53.0) 41.4% (39.0-53.0) Mean Corpuscular Volume 91fL (79-100) 92fL (79-100) Mean Corpuscular Hemoglobin 31pg (25-35) 30pg (25-35) Mean Corpuscular Hemoglobin Concent 33g/dL (31-37) 33g/dL (31-37) Red Cell Distribution Width 14.4% (11.5-14.5) 14.7% (11.5-14.5) Platelet Count 115x10^3/uL (140-400) 103x10^3/uL (140-400) Neutrophils (%) (Auto) 57% (31-73) 50% (31-73) Lymphocytes (%) (Auto) 32% (24-48) 38% (24-48) Monocytes (%) (Auto) 9% (0-9) 10% (0-9) Eosinophils (%) (Auto) 1% (0-3) 2% (0-3) Basophils (%) (Auto) 1% (0-3) 0% (0-3) Neutrophils # (Auto) 2.8x10^3uL (1.8-7.7) 2.2x10^3uL (1.8-7.7) Lymphocytes # (Auto) 1.5x10^3/uL (1.0-4.8) 1.7x10^3/uL (1.0-4.8) Monocytes # (Auto) 0.4x10^3/uL (0.0-1.1) 0.5x10^3/uL (0.0-1.1) Eosinophils # (Auto) 0.1x10^3/uL (0.0-0.7) 0.1x10^3/uL (0.0-0.7) Basophils # (Auto) 0.0x10^3/uL (0.0-0.2) 0.0x10^3/uL (0.0-0.2) Prothrombin Time 15.7SEC (11.7-14.0) Prothromb Time International Ratio 1.3 (0.8-1.1) Activated Partial Thromboplast Time 37SEC (24-38) Sodium Level 138mmol/L (136-145) 140mmol/L (136-145) Potassium Level 4.6mmol/L (3.5-5.1) 3.8mmol/L (3.5-5.1) Chloride Level 103mmol/L (98-107) 104mmol/L (98-107) Carbon Dioxide Level 25mmol/L (21-32) 27mmol/L (21-32) Anion Gap 10 (6-14) 9 (6-14) Blood Urea Nitrogen 28mg/dL (8-26) 24mg/dL (8-26) Creatinine 1.2mg/dL (0.7-1.3) 1.2mg/dL (0.7-1.3) Estimated GFR (Cockcroft-Gault) 58.7 58.7 Glucose Level 105mg/dL (70-99) 64mg/dL (70-99) Calcium Level 9.3mg/dL (8.5-10.1) 9.1mg/dL (8.5-10.1) Glucose (Fingerstick) 80mg/dL (70-99) Test 09/19/16 12:22 09/19/16 17:19 09/19/16 20:54 09/20/16 04:35 Glucose (Fingerstick) 100mg/dL (70-99) 76mg/dL (70-99) 132mg/dL (70-99) White Blood Count 5.1x10^3/uL (4.0-11.0) Red Blood Count 4.68x10^6/uL (4.30-5.70) Hemoglobin 14.3g/dL (13.0-17.5) Hematocrit 43.0% (39.0-53.0) Mean Corpuscular Volume 92fL (79-100) Mean Corpuscular Hemoglobin 31pg (25-35) Mean Corpuscular Hemoglobin Concent 33g/dL (31-37) Red Cell Distribution Width 14.8% (11.5-14.5) Platelet Count 129x10^3/uL (140-400) Neutrophils (%) (Auto) 51% (31-73) Lymphocytes (%) (Auto) 38% (24-48) Monocytes (%) (Auto) 10% (0-9) Eosinophils (%) (Auto) 1% (0-3) Basophils (%) (Auto) 1% (0-3) Neutrophils # (Auto) 2.6x10^3uL (1.8-7.7) Lymphocytes # (Auto) 1.9x10^3/uL (1.0-4.8) Monocytes # (Auto) 0.5x10^3/uL (0.0-1.1) Eosinophils # (Auto) 0.1x10^3/uL (0.0-0.7) Basophils # (Auto) 0.0x10^3/uL (0.0-0.2) Prothrombin Time 16.4SEC (11.7-14.0) Prothromb Time International Ratio 1.4 (0.8-1.1) Sodium Level 139mmol/L (136-145) Potassium Level 4.1mmol/L (3.5-5.1) Chloride Level 102mmol/L (98-107) Carbon Dioxide Level 25mmol/L (21-32) Anion Gap 12 (6-14) Blood Urea Nitrogen 24mg/dL (8-26) Creatinine 1.5mg/dL (0.7-1.3) Estimated GFR (Cockcroft-Gault) 45.4 Glucose Level 87mg/dL (70-99) Calcium Level 9.0mg/dL (8.5-10.1) Test 09/20/16 08:11 09/20/16 11:00 Glucose (Fingerstick) 115mg/dL (70-99) 181mg/dL (70-99) Laboratory Tests Test 09/19/16 17:19 09/19/16 20:54 09/20/16 04:35 09/20/16 08:11 Glucose (Fingerstick) 76mg/dL (70-99) 132mg/dL (70-99) 115mg/dL (70-99) White Blood Count 5.1x10^3/uL (4.0-11.0) Red Blood Count 4.68x10^6/uL (4.30-5.70) Hemoglobin 14.3g/dL (13.0-17.5) Hematocrit 43.0% (39.0-53.0) Mean Corpuscular Volume 92fL (79-100) Mean Corpuscular Hemoglobin 31pg (25-35) Mean Corpuscular Hemoglobin Concent 33g/dL (31-37) Red Cell Distribution Width 14.8% (11.5-14.5) Platelet Count 129x10^3/uL (140-400) Neutrophils (%) (Auto) 51% (31-73) Lymphocytes (%) (Auto) 38% (24-48) Monocytes (%) (Auto) 10% (0-9) Eosinophils (%) (Auto) 1% (0-3) Basophils (%) (Auto) 1% (0-3) Neutrophils # (Auto) 2.6x10^3uL (1.8-7.7) Lymphocytes # (Auto) 1.9x10^3/uL (1.0-4.8) Monocytes # (Auto) 0.5x10^3/uL (0.0-1.1) Eosinophils # (Auto) 0.1x10^3/uL (0.0-0.7) Basophils # (Auto) 0.0x10^3/uL (0.0-0.2) Prothrombin Time 16.4SEC (11.7-14.0) Prothromb Time International Ratio 1.4 (0.8-1.1) Sodium Level 139mmol/L (136-145) Potassium Level 4.1mmol/L (3.5-5.1) Chloride Level 102mmol/L (98-107) Carbon Dioxide Level 25mmol/L (21-32) Anion Gap 12 (6-14) Blood Urea Nitrogen 24mg/dL (8-26) Creatinine 1.5mg/dL (0.7-1.3) Estimated GFR (Cockcroft-Gault) 45.4 Glucose Level 87mg/dL (70-99) Calcium Level 9.0mg/dL (8.5-10.1) Test 09/20/16 11:00 Glucose (Fingerstick) 181mg/dL (70-99) Medications Current Medications Heparin Sodium (Porcine) 7750 unit 7,750 unit 1X ONCE IV ; Start 09/18/16 at 15 :45; Stop 09/18/16 at 15:52; Status DC Heparin Sodium/ Dextrose 500 ml @ 0 mls/hr CONT PRN IV SEE I/O RECORD; Start at 15:45; Stop 09/18/16 at 15:52; Status DC Heparin Sodium (Porcine) (Heparin Sodium) 2,900 unit PRN Q6HRS PRN IV FOR UFH LEVEL LESS THAN 0.2; Start 09/18/16 at 15:45; Stop 09/18/16 at 15:52; Status DC Heparin Sodium (Porcine) (Heparin Sodium) 1,450 unit PRN Q6HRS PRN IV FOR UFH LEVEL 0.2 - 0.29; Start 09/18/16 at 15:45; Stop 09/18/16 at 15:52; Status DC Warfarin Sodium (Coumadin Per Pharmacy) 1 each PRN DAILY PRN MC PER PROTOCOL; Start 09/18/16 at 15:45; Stop 09/18/16 at 15:45; Status DC Enoxaparin Sodium (Lovenox Per Pharmacy Treatment Dosing) 1 each PRN DAILY PRN MC SEE COMMENTS; Start 09/18/16 at 16:00 Enoxaparin Sodium (Lovenox 100mg Syringe) 100 mg 1X ONCE SQ Last administered on 09/18/16t 17:11; Start 09/18/16 at 16:00; Stop 09/18/16 at 16:01; Status DC Ondansetron HCl (Zofran) 4 mg PRN Q8HRS PRN IV NAUSEA/VOMITING; Start 09/18/16 at 17:30; Stop 09/19/16 at 17:29; Status DC Morphine Sulfate 2 mg PRN Q2HR PRN IV PAIN; Start 09/18/16 at 17:30; Stop 09/18 at 22:03; Status DC Enoxaparin Sodium (Lovenox 100mg Syringe) 100 mg Q12HR SQ Last administered on 09/20/16 08:43; Start 09/18/16 at 23:00 Info (Anti-Coagulation Monitoring By Pharmacy) 1 each PRN DAILY PRN MC SEE COMMENTS Last administered on 09/19/16 08:45; Start 09/18/16 at 17:45; Stop at 07:22; Status DC Aspirin (Children'S Aspirin) 81 mg HS PO Last administered on 09/19/16 21:08; Start 09/18/16 at 22:15 Atorvastatin Calcium (Lipitor) 10 mg HS PO Last administered on 09/19/16 21:07 ; Start 09/18/16 at 22:15 Glyburide (Diabeta) 5 mg HS PO Last administered on 09/19/16 21:07; Start at 22:15 Metformin HCl (Glucophage) 500 mg BIDWMEALS PO Last administered on 09/20/16 08:41; Start 09/19/16 at 08:00 Metoprolol Tartrate (Lopressor) 25 mg BID PO Last administered on 09/20/16 08: 41; Start 09/18/16 at 22:15 Nitroglycerin (Nitrostat) 0.4 mg DAILY PRN SL CHEST PAIN; Start 09/18/16 at 22: 00 Losartan Potassium (Cozaar) 100 mg HS PO Last administered on 09/19/16 21:07; Start 09/18/16 at 22:15 Hydralazine HCl (Apresoline) 10 mg PRN Q4HRS PRN IVP ELEVATED BP, SEE COMMENTS ; Start 09/18/16 at 22:00 Acetaminophen (Tylenol) 650 mg PRN Q6HRS PRN PO pain; Start 09/18/16 at 22:00 Warfarin Sodium (Coumadin Per Pharmacy) 1 each PRN DAILY PRN MC SEE COMMENTS Last administered on 09/20/16 08:05; Start 09/19/16 at 12:15 Warfarin Sodium (Coumadin) 7.5 mg 1X WARF ONCE PO Last administered on 16:20; Start 09/19/16 at 16:00; Stop 09/19/16 at 16:01; Status DC Warfarin Sodium (Coumadin Per Pharmacy) 1 each PRN DAILY PRN MC SEE COMMENTS; Start 09/19/16 at 14:15; Status UNV Warfarin Sodium (Coumadin) 5 mg 1X ONCE PO ; Start 09/19/16 at 14:15; Stop at 14:16; Status UNV Warfarin Sodium (Coumadin) 5 mg 1X WARF ONCE PO ; Start 09/20/16 at 16:00; Stop 09/20/16 at 16:01 Active Scripts Active Reported Metoprolol Tartrate 25 Mg Tablet 25 Mg PO BID Aspirin 325 Mg Tablet 1 Tab PO HS Glyburide 5 Mg Tablet 5 Mg PO HS Metformin Hcl 500 Mg Tablet 500 Mg PO BID Losartan Potassium 100 Mg Tablet 100 Mg PO HS 30 Days Atorvastatin Calcium 10 Mg Tablet 10 Mg PO HS Nitrostat (Nitroglycerin) 0.4 Mg Tab.subl 0.4 Mg SL PRN Vitals/I & O Vital Sign - Last 24 Hours 09/19/16 09/19/16 09/19/16 09/19/16 15:28 19:23 20:55 21:07 Temp 98.0 98.2 98.0 98.2 Pulse 74 83 83 Resp 18 B/P 158/88 173/87 173/87 Pulse Ox 97 96 O2 Delivery Room Air Room Air Room Air 09/19/16 09/19/16 09/20/16 09/20/16 21:07 23:00 02:37 07:00 Temp 97.9 97.6 97.4 97.9 97.6 97.4 Pulse 83 79 78 71 Resp 16 18 B/P 173/87 148/85 129/78 147/87 Pulse Ox 94 95 94 O2 Delivery Room Air Room Air Room Air 09/20/16 09/20/16 09/20/16 08:09 08:41 10:57 Temp 97.6 97.6 Pulse 71 70 Resp 19 B/P 147/87 149/77 Pulse Ox 96 O2 Delivery Room Air Room Air Intake and Output 09/19/16 09/19/16 09/20/16 14:59 22:59 06:59 Intake Total 300 ml Balance 300 ml CASTLE,NIAL K III DO Sep 20, 2016 13:15
[2016-09-20 15:32] VITALS: BP 172/85
[2016-09-20] MEDS ORDERED: WARFARIN 5 MG TABLET. PO ONE (16:00)
--- NOTE | 2016-09-20 17:23 | PDOC ---
Provider Note Provider Note IR Note: Asked to see Mr Briones by Vascular Surgery for extensive left lower extremity DVT---thank you. Very pleasant 76 YO generally active male with painless, moderate left lower extremity swelling, with Doppler evidence of [id number] DVT. No evidence of phlegmasia cerulea dolens. No arterial insufficiency. No CP. No SOA. Currently on Lovenox as bridge to Coumadin. Given relatively mild symptoms, I would defer catheter directed thrombolysis at this time. Given iliac extension of thrombus, retrievable ICV filter insertion would be considered reasonable, but not mandatory. However, given 's concern for possible major PE, I plan to proceed with retrievable IVC filter insertion in AM. Plan: 1. lobsterman anticoagulation. 2. Thigh high compression stockings. 3. Leg elevation. 4. Retrievable IVC filter insertion in AM---to be removed promptly when risk of PE has resolved. ASHA PAREKH MD Sep 20, 2016 17:23
[2016-09-20 19:16] VITALS: BP 155/87
[2016-09-20] MEDS: ASPIRIN CHEWABLE 81 MG TABLET. PO SCH (21:44)
[2016-09-20] MEDS: glyBURIDE 5 MG TABLET PO SCH (21:44)
[2016-09-20] MEDS: ATORVASTATIN CALCIUM 10 MG TABLET. PO SCH (21:46)
[2016-09-20] MEDS: LOSARTAN POTASSIUM 50 MG TABLET. PO SCH (21:47)
[2016-09-20 23:38] VITALS: BP 154/98
[2016-09-21] VITALS (15 sets, daily range): BP systolic 118–172; BP diastolic 67–92
[2016-09-21 06:07] LABS: BASO % 1 % (0-3); EOS % 2 % (0-3); HEMATOCRIT 42.1 % (39.0-53.0); HEMOGLOBIN 14.3 g/dL (13.0-17.5); LYMPH # 1.7 x10^3/uL (1.0-4.8); LYMPH % 34 % (24-48); MEAN CORPUSCULAR HEMOGLOBIN 31 pg (25-35); MEAN CORPUSCULAR HGB CONC 34 g/dL (31-37); MEAN CORPUSCULAR VOLUME 90 fL (79-100); MONO % 12 % (0-9); NEUT % 52 % (31-73); PLATELET COUNT 126 x10^3/uL (140-400); RED BLOOD COUNT 4.67 x10^6/uL (4.30-5.70); RED CELL DISTRIBUTION WIDTH 14.6 % (11.5-14.5); WHITE BLOOD COUNT 5.2 x10^3/uL (4.0-11.0)
[2016-09-21 06:26] LABS: CALCIUM 9.3 mg/dL (8.5-10.1); CREATININE 1.3 mg/dL (0.7-1.3); GFR 53.5
[2016-09-21 06:31] LABS: INR 1.4 (0.8-1.1); PROTHROMBIN TIME PATIENT 16.6 SEC (11.7-14.0)
[2016-09-21] MEDS ORDERED: IOHEXOL 300 MG/ML 100ML VIAL. ONE (10:22)
[2016-09-21] MEDS ORDERED: LIDOCAINE 1% / SOD BICARB 8.4% 20 ML VIAL. IJ ONE ×2 (10:23→11:30)
[2016-09-21] MEDS ORDERED: fentaNYL PF VIAL 100 MCG/2 ML VIAL ONE (11:08)
[2016-09-21] MEDS ORDERED: MIDAZOLAM HCL/PF 2 MG/2 ML VIAL. ONE (11:08)
[2016-09-21] MEDS ORDERED: CONTRAST GIVEN MC PRN (11:30)
[2016-09-21] MEDS ORDERED: fentaNYL PF VIAL 100 MCG/2 ML VIAL IV ONE (11:30)
[2016-09-21] MEDS ORDERED: MIDAZOLAM HCL/PF 2 MG/2 ML VIAL. IV ONE (11:30)
[2016-09-21] MEDS ORDERED: IOHEXOL 300 MG/ML 100ML VIAL. IART ONE (11:30)
--- NOTE | 2016-09-21 11:43 | PDOC ---
MODERATE SEDATION ASSESSMENT RISKS/ALTERNATIVES Risks/Alternatives Risks and alternatives of this type of sedation and procedure discussed with: RISK/ALTERNATIVES: Patient H & P ON CHART H & P H & P on chart and reviewed for co-morbid conditions and appropriate labs. H&P ON CHART: Yes STATUS PREG STATUS ASSESSED: N/A MEDS/ALLERGIES REVIEWED Meds/Allergies Reviewed Medications and Allergies including time and route of recently administered narcotics and sedatives. MEDS/ALLERGIES REVIEWED: Yes ASA RATING ASA RATING: II AIRWAY ASSESSMENT Airway Assessment Airway patency, oral function limitations, presence of caps, crowns, dentures, partials, and ability to extend neck assessed. AIRWAY ASSESSMENT: Yes MALLAMPATI SCORE MALLAMPATI SCORE: III PRE-SEDATION ASSESSMENT PRE-SEDATION ASSESSMENT: Yes ASHA PAREKH MD Sep 21, 2016 11:43
--- NOTE | 2016-09-21 11:45 | PDOC ---
Exam Supervisor Wash [facility] Supervisor [facility] House Jesi. Experimental Box Tester Experimental Box Tester Daquan Jimenez. Pre-Procedure Diagnosis Pre-Procedure Diagnosis 76 YO male with extensive left lower extremity [id number] DVT, and with somewhat limited cardiopulmonary reserve due to h/o significant CAD. Post-Procedure Diagnosis Post-Procedure Diagnosis Same Procedure Performed Procedure Performed Sono/fluoro guided retrievable IVC filter insertion. Type of Anesthesia Type of Anesthesia Local + Mod sedation Estimated Blood Loss EBL: Minimal Condition of Patient Condition of Patient Stable. No apparent complication. Disposition Disposition From IR return to [facility] for recovery. F/u with [facility] as inpatient. F/u with Dr River upon discharge. OK to resume Lovenox at 1330 today and OK to continue PO Coumadin. Full report to follow. Retrievable Dinali IVC filter should be promptly removed following resolution of PE risk. ASHA PAREKH MD Sep 21, 2016 11:45
[2016-09-21] MEDS ORDERED: ONDANSETRON PF 4 MG/2 ML VIAL. IV PRN (12:00)
[2016-09-21] MEDS: METOPROLOL TART IMMED RELEASE 25 MG TABLET. PO SCH ×2 (13:46→21:27)
--- NOTE | 2016-09-21 13:51 | PDOC ---
PROGRESS NOTES Chief Complaint Chief Complaint cc: Lower extremity edema, DVT HTN Diabetes mellitus CAD with prior CABG and PCI/stents prior Skin cancer s/p resections Hypercholesterolemia History of Present Illness History of Present Illness Patient seen and evaluated at bedside. Patient resting in no apparent distress. No complaints at this time. Scheduled placement of reversible IVC filter per vascular surgery. d/w nurse about plan of care. Vitals Vitals Vital Signs Date Time Temp Pulse Resp B/P Pulse Ox O2 Delivery O2 Flow Rate FiO2 09/21/16 13:46 78 144/80 09/21/16 11:43 20 95 Room Air 09/21/16 07:30 97.6 97.6 Physical Exam General: Alert, Oriented X3, Cooperative Heart: Regular rate, Normal S1, Normal S2 Lungs: Clear, Other (negative chest retractions and/or other accessory muscle use. ) Abdomen: Soft, No tenderness Extremities: Normal pulses, Other (trace ankle edema. No warmth to the touch. Negative calf tenderness to palpation bilaterally. ) Skin: No breakdown, No significant lesion Labs LABS Laboratory Tests Test 09/20/16 16:35 09/20/16 21:04 09/21/16 05:00 09/21/16 08:11 Glucose (Fingerstick) 149mg/dL (70-99) 103mg/dL (70-99) 117mg/dL (70-99) White Blood Count 5.2x10^3/uL (4.0-11.0) Red Blood Count 4.67x10^6/uL (4.30-5.70) Hemoglobin 14.3g/dL (13.0-17.5) Hematocrit 42.1% (39.0-53.0) Mean Corpuscular Volume 90fL (79-100) Mean Corpuscular Hemoglobin 31pg (25-35) Mean Corpuscular Hemoglobin Concent 34g/dL (31-37) Red Cell Distribution Width 14.6% (11.5-14.5) Platelet Count 126x10^3/uL (140-400) Neutrophils (%) (Auto) 52% (31-73) Lymphocytes (%) (Auto) 34% (24-48) Monocytes (%) (Auto) 12% (0-9) Eosinophils (%) (Auto) 2% (0-3) Basophils (%) (Auto) 1% (0-3) Neutrophils # (Auto) 2.7x10^3uL (1.8-7.7) Lymphocytes # (Auto) 1.7x10^3/uL (1.0-4.8) Monocytes # (Auto) 0.6x10^3/uL (0.0-1.1) Eosinophils # (Auto) 0.1x10^3/uL (0.0-0.7) Basophils # (Auto) 0.0x10^3/uL (0.0-0.2) Prothrombin Time 16.6SEC (11.7-14.0) Prothromb Time International Ratio 1.4 (0.8-1.1) Sodium Level 138mmol/L (136-145) Potassium Level 4.0mmol/L (3.5-5.1) Chloride Level 104mmol/L (98-107) Carbon Dioxide Level 26mmol/L (21-32) Anion Gap 8 (6-14) Blood Urea Nitrogen 24mg/dL (8-26) Creatinine 1.3mg/dL (0.7-1.3) Estimated GFR (Cockcroft-Gault) 53.5 Glucose Level 68mg/dL (70-99) Calcium Level 9.3mg/dL (8.5-10.1) Review of Systems Review of Systems Denies chest pain, palpitations, sob, abdominal pain, n/v/d, or fever/chills. Assessment and Plan Assessmemt and Plan Problems Medical Problems: (1) Deep venous thrombosis Status: Acute (2) DVT (deep venous thrombosis) Status: Acute Assessment: 1.) LLE deep and superficial venous thrombosis 2.) CAD, prior CABG and PCI stenting 3.) Diabetes Mellitus type II 4.) HTN 5.) HLD Plan: 1.) continue therapeutic lovenox, bridge to coumadin. 2.) continue telemetry monitoring 3.) continue home medications as appropriate 4.) limit mobility secondary to clot burden. continue compression stockings and leg elevations, per vascular's recommendations 5.) check AM labs. 6.) appreciate subspecialty input 7.) continue discharge planning to home with continued anticoagulation when okay with vascular surgery. Problems: Comment Review of Relevant I have reviewed the following items emily (where applicable) has been applied. Labs Laboratory Tests Test 09/19/16 17:19 09/19/16 20:54 09/20/16 04:35 09/20/16 08:11 Glucose (Fingerstick) 76mg/dL (70-99) 132mg/dL (70-99) 115mg/dL (70-99) White Blood Count 5.1x10^3/uL (4.0-11.0) Red Blood Count 4.68x10^6/uL (4.30-5.70) Hemoglobin 14.3g/dL (13.0-17.5) Hematocrit 43.0% (39.0-53.0) Mean Corpuscular Volume 92fL (79-100) Mean Corpuscular Hemoglobin 31pg (25-35) Mean Corpuscular Hemoglobin Concent 33g/dL (31-37) Red Cell Distribution Width 14.8% (11.5-14.5) Platelet Count 129x10^3/uL (140-400) Neutrophils (%) (Auto) 51% (31-73) Lymphocytes (%) (Auto) 38% (24-48) Monocytes (%) (Auto) 10% (0-9) Eosinophils (%) (Auto) 1% (0-3) Basophils (%) (Auto) 1% (0-3) Neutrophils # (Auto) 2.6x10^3uL (1.8-7.7) Lymphocytes # (Auto) 1.9x10^3/uL (1.0-4.8) Monocytes # (Auto) 0.5x10^3/uL (0.0-1.1) Eosinophils # (Auto) 0.1x10^3/uL (0.0-0.7) Basophils # (Auto) 0.0x10^3/uL (0.0-0.2) Prothrombin Time 16.4SEC (11.7-14.0) Prothromb Time International Ratio 1.4 (0.8-1.1) Sodium Level 139mmol/L (136-145) Potassium Level 4.1mmol/L (3.5-5.1) Chloride Level 102mmol/L (98-107) Carbon Dioxide Level 25mmol/L (21-32) Anion Gap 12 (6-14) Blood Urea Nitrogen 24mg/dL (8-26) Creatinine 1.5mg/dL (0.7-1.3) Estimated GFR (Cockcroft-Gault) 45.4 Glucose Level 87mg/dL (70-99) Calcium Level 9.0mg/dL (8.5-10.1) Test 09/20/16 11:00 09/20/16 16:35 09/20/16 21:04 09/21/16 05:00 Glucose (Fingerstick) 181mg/dL (70-99) 149mg/dL (70-99) 103mg/dL (70-99) White Blood Count 5.2x10^3/uL (4.0-11.0) Red Blood Count 4.67x10^6/uL (4.30-5.70) Hemoglobin 14.3g/dL (13.0-17.5) Hematocrit 42.1% (39.0-53.0) Mean Corpuscular Volume 90fL (79-100) Mean Corpuscular Hemoglobin 31pg (25-35) Mean Corpuscular Hemoglobin Concent 34g/dL (31-37) Red Cell Distribution Width 14.6% (11.5-14.5) Platelet Count 126x10^3/uL (140-400) Neutrophils (%) (Auto) 52% (31-73) Lymphocytes (%) (Auto) 34% (24-48) Monocytes (%) (Auto) 12% (0-9) Eosinophils (%) (Auto) 2% (0-3) Basophils (%) (Auto) 1% (0-3) Neutrophils # (Auto) 2.7x10^3uL (1.8-7.7) Lymphocytes # (Auto) 1.7x10^3/uL (1.0-4.8) Monocytes # (Auto) 0.6x10^3/uL (0.0-1.1) Eosinophils # (Auto) 0.1x10^3/uL (0.0-0.7) Basophils # (Auto) 0.0x10^3/uL (0.0-0.2) Prothrombin Time 16.6SEC (11.7-14.0) Prothromb Time International Ratio 1.4 (0.8-1.1) Sodium Level 138mmol/L (136-145) Potassium Level 4.0mmol/L (3.5-5.1) Chloride Level 104mmol/L (98-107) Carbon Dioxide Level 26mmol/L (21-32) Anion Gap 8 (6-14) Blood Urea Nitrogen 24mg/dL (8-26) Creatinine 1.3mg/dL (0.7-1.3) Estimated GFR (Cockcroft-Gault) 53.5 Glucose Level 68mg/dL (70-99) Calcium Level 9.3mg/dL (8.5-10.1) Test 09/21/16 08:11 Glucose (Fingerstick) 117mg/dL (70-99) Laboratory Tests Test 09/20/16 16:35 09/20/16 21:04 09/21/16 05:00 09/21/16 08:11 Glucose (Fingerstick) 149mg/dL (70-99) 103mg/dL (70-99) 117mg/dL (70-99) White Blood Count 5.2x10^3/uL (4.0-11.0) Red Blood Count 4.67x10^6/uL (4.30-5.70) Hemoglobin 14.3g/dL (13.0-17.5) Hematocrit 42.1% (39.0-53.0) Mean Corpuscular Volume 90fL (79-100) Mean Corpuscular Hemoglobin 31pg (25-35) Mean Corpuscular Hemoglobin Concent 34g/dL (31-37) Red Cell Distribution Width 14.6% (11.5-14.5) Platelet Count 126x10^3/uL (140-400) Neutrophils (%) (Auto) 52% (31-73) Lymphocytes (%) (Auto) 34% (24-48) Monocytes (%) (Auto) 12% (0-9) Eosinophils (%) (Auto) 2% (0-3) Basophils (%) (Auto) 1% (0-3) Neutrophils # (Auto) 2.7x10^3uL (1.8-7.7) Lymphocytes # (Auto) 1.7x10^3/uL (1.0-4.8) Monocytes # (Auto) 0.6x10^3/uL (0.0-1.1) Eosinophils # (Auto) 0.1x10^3/uL (0.0-0.7) Basophils # (Auto) 0.0x10^3/uL (0.0-0.2) Prothrombin Time 16.6SEC (11.7-14.0) Prothromb Time International Ratio 1.4 (0.8-1.1) Sodium Level 138mmol/L (136-145) Potassium Level 4.0mmol/L (3.5-5.1) Chloride Level 104mmol/L (98-107) Carbon Dioxide Level 26mmol/L (21-32) Anion Gap 8 (6-14) Blood Urea Nitrogen 24mg/dL (8-26) Creatinine 1.3mg/dL (0.7-1.3) Estimated GFR (Cockcroft-Gault) 53.5 Glucose Level 68mg/dL (70-99) Calcium Level 9.3mg/dL (8.5-10.1) Medications Current Medications Heparin Sodium (Porcine) 7750 unit 7,750 unit 1X ONCE IV ; Start 09/18/16 at 15 :45; Stop 09/18/16 at 15:52; Status DC Heparin Sodium/ Dextrose 500 ml @ 0 mls/hr CONT PRN IV SEE I/O RECORD; Start at 15:45; Stop 09/18/16 at 15:52; Status DC Heparin Sodium (Porcine) (Heparin Sodium) 2,900 unit PRN Q6HRS PRN IV FOR UFH LEVEL LESS THAN 0.2; Start 09/18/16 at 15:45; Stop 09/18/16 at 15:52; Status DC Heparin Sodium (Porcine) (Heparin Sodium) 1,450 unit PRN Q6HRS PRN IV FOR UFH LEVEL 0.2 - 0.29; Start 09/18/16 at 15:45; Stop 09/18/16 at 15:52; Status DC Warfarin Sodium (Coumadin Per Pharmacy) 1 each PRN DAILY PRN MC PER PROTOCOL; Start 09/18/16 at 15:45; Stop 09/18/16 at 15:45; Status DC Enoxaparin Sodium (Lovenox Per Pharmacy Treatment Dosing) 1 each PRN DAILY PRN MC SEE COMMENTS; Start 09/18/16 at 16:00 Enoxaparin Sodium (Lovenox 100mg Syringe) 100 mg 1X ONCE SQ Last administered on 09/18/16 17:11; Start 09/18/16 at 16:00; Stop 09/18/16 at 16:01; Status DC Ondansetron HCl (Zofran) 4 mg PRN Q8HRS PRN IV NAUSEA/VOMITING; Start 09/18/16 at 17:30; Stop 09/19/16 at 17:29; Status DC Morphine Sulfate 2 mg PRN Q2HR PRN IV PAIN; Start 09/18/16 at 17:30; Stop 09/18 at 22:03; Status DC Enoxaparin Sodium (Lovenox 100mg Syringe) 100 mg Q12HR SQ Last administered on 09/21/16 13:47; Start 09/18/16 at 23:00 Info (Anti-Coagulation Monitoring By Pharmacy) 1 each PRN DAILY PRN MC SEE COMMENTS Last administered on 09/19/16 08:45; Start 09/18/16 at 17:45; Stop at 07:22; Status DC Aspirin (Children'S Aspirin) 81 mg HS PO Last administered on 09/20/16 21:44; Start 09/18/16 at 22:15 Atorvastatin Calcium (Lipitor) 10 mg HS PO Last administered on 09/20/16 21:46 ; Start 09/18/16 at 22:15 Glyburide (Diabeta) 5 mg HS PO Last administered on 09/20/16 21:44; Start at 22:15 Metformin HCl (Glucophage) 500 mg BIDWMEALS PO Last administered on 09/20/16 16:40; Start 09/19/16 at 08:00; Stop 09/21/16 at 11:29; Status DC Metoprolol Tartrate (Lopressor) 25 mg BID PO Last administered on 09/21/16 13: 46; Start 09/18/16 at 22:15 Nitroglycerin (Nitrostat) 0.4 mg DAILY PRN SL CHEST PAIN; Start 09/18/16 at 22: 00 Losartan Potassium (Cozaar) 100 mg HS PO Last administered on 09/20/16 21:47; Start 09/18/16 at 22:15 Hydralazine HCl (Apresoline) 10 mg PRN Q4HRS PRN IVP ELEVATED BP, SEE COMMENTS ; Start 09/18/16 at 22:00 Acetaminophen (Tylenol) 650 mg PRN Q6HRS PRN PO pain; Start 09/18/16 at 22:00 Warfarin Sodium (Coumadin Per Pharmacy) 1 each PRN DAILY PRN MC SEE COMMENTS Last administered on 09/20/16 08:05; Start 09/19/16 at 12:15 Warfarin Sodium (Coumadin) 7.5 mg 1X WARF ONCE PO Last administered on 16:20; Start 09/19/16 at 16:00; Stop 09/19/16 at 16:01; Status DC Warfarin Sodium (Coumadin Per Pharmacy) 1 each PRN DAILY PRN MC SEE COMMENTS; Start 09/19/16 at 14:15; Status UNV Warfarin Sodium (Coumadin) 5 mg 1X ONCE PO ; Start 09/19/16 at 14:15; Stop at 14:16; Status UNV Warfarin Sodium (Coumadin) 5 mg 1X WARF ONCE PO Last administered on 16:41; Start 09/20/16 at 16:00; Stop 09/20/16 at 16:01; Status DC Iohexol (Omnipaque 300 Mg/ml) 100 ml STK-MED ONCE .ROUTE ; Start 09/21/16 at 10: 22; Stop 09/21/16 at 10:23; Status DC Lidocaine/Sodium Bicarbonate 20 ml 20 ml STK-MED ONCE IJ ; Start 09/21/16 at 10: 23; Stop 09/21/16 at 10:24; Status DC Heparin Sodium/ Sodium Chloride 500 ml @ As Directed STK-MED ONCE .ROUTE ; Start 09/21/16 at 10:23; Stop 09/21/16 at 10:24; Status DC Fentanyl Citrate (Fentanyl 2ml Vial) 100 mcg STK-MED ONCE .ROUTE ; Start at 11:08; Stop 09/21/16 at 11:09; Status DC Midazolam HCl (Versed) 2 mg STK-MED ONCE .ROUTE ; Start 09/21/16 at 11:08; Stop 09/21/16 at 11:09; Status DC Heparin Sodium/ Sodium Chloride 1,000 unit 1X ONCE IART Last administered on 11:41; Start 09/21/16 at 11:30; Stop 09/21/16 at 11:31; Status DC Lidocaine/Sodium Bicarbonate (Buffered Lidocaine 1%) 20 ml 1X ONCE IJ Last administered on 09/21/16 11:41; Start 09/21/16 at 11:30; Stop 09/21/16 at 11:31 ; Status DC Midazolam HCl (Versed) 2 mg 1X ONCE IV Last administered on 09/21/16 11:42; Start 09/21/16 at 11:30; Stop 09/21/16 at 11:31; Status DC Fentanyl Citrate (Fentanyl 2ml Vial) 100 mcg 1X ONCE IV Last administered on 11:42; Start 09/21/16 at 11:30; Stop 09/21/16 at 11:31; Status DC Iohexol (Omnipaque 300 Mg/ml) 100 ml 1X ONCE IART Last administered on 11:41; Start 09/21/16 at 11:30; Stop 09/21/16 at 11:31; Status DC Metformin HCl (Glucophage) 500 mg BIDWMEALS PO ; Start 09/23/16 at 17:00 Info (Do NOT chart on this entry -- for MONITORING) 1 each PRN DAILY PRN MC SEE COMMENTS; Start 09/21/16 at 11:30; Stop 09/23/16 at 11:29 Ondansetron HCl (Zofran) 4 mg PRN Q6HRS PRN IV NAUSEA/VOMITING Last administered on 09/21/16 12:24; Start 09/21/16 at 12:00 Active Scripts Active Reported Metoprolol Tartrate 25 Mg Tablet 25 Mg PO BID Aspirin 325 Mg Tablet 1 Tab PO HS Glyburide 5 Mg Tablet 5 Mg PO HS Metformin Hcl 500 Mg Tablet 500 Mg PO BID Losartan Potassium 100 Mg Tablet 100 Mg PO HS 30 Days Atorvastatin Calcium 10 Mg Tablet 10 Mg PO HS Nitrostat (Nitroglycerin) 0.4 Mg Tab.subl 0.4 Mg SL PRN Vitals/I & O Vital Sign - Last 24 Hours 09/20/16 09/20/16 09/20/16 09/20/16 15:32 19:16 20:30 21:46 Temp 97.7 97.5 97.7 97.5 Pulse 76 81 81 Resp 18 20 B/P 172/85 155/87 155/87 Pulse Ox 96 95 O2 Delivery Room Air Room Air Room Air 09/20/16 09/20/16 09/21/16 09/21/16 21:47 23:38 03:08 07:30 Temp 97.7 97.6 97.6 97.7 97.6 97.6 Pulse 81 79 83 79 Resp 18 18 19 B/P 155/87 154/98 163/83 124/72 Pulse Ox 96 96 97 O2 Delivery Room Air Room Air Room Air 09/21/16 09/21/16 09/21/16 11:42 11:43 13:46 Pulse 79 78 Resp 21 20 B/P 144/80 Pulse Ox 98 95 O2 Delivery Room Air Room Air Intake and Output 09/20/16 09/20/16 09/21/16 15:00 23:00 07:00 Intake Total 360 ml 700 ml 0 ml Balance 360 ml 700 ml 0 ml ISAIAH PHILLIPS III DO Sep 21, 2016 13:51
[2016-09-21] MEDS ORDERED: WARFARIN 6 MG TABLET. PO ONE (16:00)
[2016-09-21] MEDS ORDERED: DEXTROSE 50% 25 GM / 50ML DISP.SYRIN. IV PRN (19:00)
[2016-09-21] MEDS: INSULIN ASPART 300 UNITS/3 ML INSULN.PEN SQ SCH (19:22)
[2016-09-21] MEDS: ASPIRIN CHEWABLE 81 MG TABLET. PO SCH (21:27)
[2016-09-21] MEDS: LOSARTAN POTASSIUM 50 MG TABLET. PO SCH (21:27)
[2016-09-21] MEDS: glyBURIDE 5 MG TABLET PO SCH (21:27)
[2016-09-21] MEDS: ATORVASTATIN CALCIUM 10 MG TABLET. PO SCH (21:27)
[2016-09-22 03:55] VITALS: BP 125/70
[2016-09-22 05:58] LABS: INR 1.6 (0.8-1.1); PROTHROMBIN TIME PATIENT 18.4 SEC (11.7-14.0)
[2016-09-22 06:13] LABS: HEMATOCRIT 41.9 % (39.0-53.0); HEMOGLOBIN 13.8 g/dL (13.0-17.5); MEAN CORPUSCULAR HEMOGLOBIN 30 pg (25-35); MEAN CORPUSCULAR HGB CONC 33 g/dL (31-37); MEAN CORPUSCULAR VOLUME 92 fL (79-100); NEUT % 53 % (31-73); PLATELET COUNT 138 x10^3/uL (140-400); RED BLOOD COUNT 4.57 x10^6/uL (4.30-5.70); RED CELL DISTRIBUTION WIDTH 14.9 % (11.5-14.5); WHITE BLOOD COUNT 5.2 x10^3/uL (4.0-11.0)
[2016-09-22 06:14] LABS: BASO % 1 % (0-3); EOS % 1 % (0-3); LYMPH # 1.7 x10^3/uL (1.0-4.8); LYMPH % 32 % (24-48); MONO % 13 % (0-9)
[2016-09-22 07:02] LABS: CALCIUM 9.2 mg/dL (8.5-10.1); CREATININE 1.7 mg/dL (0.7-1.3); GFR 39.3; POTASSIUM 3.9 mmol/L (3.5-5.1)
[2016-09-22 07:39] VITALS: BP 146/78
[2016-09-22] MEDS: INSULIN ASPART 300 UNITS/3 ML INSULN.PEN SQ SCH ×2 (08:00→12:00)
[2016-09-22] MEDS: METOPROLOL TART IMMED RELEASE 25 MG TABLET. PO SCH (08:57)
[2016-09-22 11:00] VITALS: BP 133/70
--- NOTE | 2016-09-22 11:15 | RAD ---
Ultrasound guided IVC gram Fluoro guided retrieval IVC filter placement Indication: 76-year-old male with extensive left ileofemoral-popliteal DVT and was somewhat limited cardiopulmonary reserve, due to severe CAD. This is a relative indication for retrievable IVC filter insertion. Fluoro time: 3.5 minutes Kerma-Area Product: 82 Gycm2 Moderate sedation: 19 minutes moderate sedation was provided utilizing a total of 2 mg Versed and 100 mcg fentanyl, IV. Contrast material: 40 cc Omnipaque 300 Consent: The procedure was explained in its entirety to the patient and/or the patient's designated senior outside sales representative by a member of the treatment team. This included a discussion of risks and benefits and commonly accepted alternatives to the procedure, as well as expected consequences of no treatment at all. Discussion of risks included, but was not limited to, those that are most frequent and those that are rare, but possibly severe or life-threatening, as well as the possibility of unforeseen complications. Sterility: All elements of maximal sterile barrier technique, including the use of a cap, mask, sterile gown, sterile gloves, large sterile sheet, appropriate hand hygiene, and 2% chlorhexidine for cutaneous antisepsis (or acceptable alternative antiseptic per current guidelines) were utilized. Procedure. Informed consent was obtained from the patient. He was placed supine on the angiography table. Preliminary ultrasound evaluation of right neck revealed wide patency of right internal jugular vein, which was documented with a single hard copy ultrasound image. Right neck was then prepped and draped in the usual sterile fashion, utilizing all elements of maximal sterile barrier technique, as described above. Using aseptic technique, local anesthesia, direct ultrasound guidance, and the micropuncture system, successful percutaneous entry was achieved into right internal jugular vein. The right IJ venostomy tract was then dilated, and a long 8.4 [place] sheath was successfully advanced into lower IVC. Omnipaque 300 was injected and IVC gram DSA images were obtained. These images revealed normal caliber of IVC, without stricture and without intraluminal thrombus. Level of renal veins was well seen. There was no contraindication to IVC filter placement. Therefore, using aseptic technique and fluoroscopic guidance, a [place] IVC filter was advanced through the indwelling long 8.4 [place] sheath, and was successfully deployed within infrarenal IVC. Completion IVC gram DSA images confirmed satisfactory orientation of, and satisfactory position of the IVC filter, between renal veins and cava bifurcation. Patient tolerated the procedure well, without apparent complication. The right IJ sheath was removed and hemostasis was achieved with manual pressure. Impression: 1. Successful, uneventful sono guided IVC gram, without contraindication to IVC filter placement. 2. Successful, uneventful fluoro guided placement of infrarenal [place] retrievable IVC filter, as described. This filter can be left in place as a "permanent" IVC filter, or can be retrieved once risk of pulmonary embolus has resolved, at referring physician's discretion.
[2016-09-22] MEDS ORDERED: ANTI-COAG MONITOR BY PHARMACY. MC PRN (11:45)
[2016-09-22] MEDS ORDERED: WARFARIN 6 MG TABLET. PO ONE (16:00)
--- NOTE | 2016-09-22 16:01 | PDOC ---
PROGRESS NOTES Chief Complaint Chief Complaint cc: Lower extremity edema, DVT HTN Diabetes mellitus CAD with prior CABG and PCI/stents prior Skin cancer s/p resections Hypercholesterolemia History of Present Illness History of Present Illness Patient seen and evaluated at bedside. Patient resting in no apparent distress. No complaints at this time. eager to be discharged. d/w nurse about plan of care. Vitals Vitals Vital Signs Date Time Temp Pulse Resp B/P Pulse Ox O2 Delivery O2 Flow Rate FiO2 09/22/16 11:00 97.7 63 18 133/70 94 Room Air 97.7 Physical Exam General: Alert, Oriented X3, Cooperative Heart: Regular rate, Normal S1, Normal S2 Lungs: Clear, Other (negative chest retractions and/or other accessory muscle use. ) Abdomen: Soft, No tenderness Extremities: Normal pulses, Other (trace ankle edema. No warmth to the touch. Negative calf tenderness to palpation bilaterally. ) Skin: No breakdown, No significant lesion Labs LABS Laboratory Tests Test 09/21/16 16:37 09/21/16 20:39 09/22/16 05:00 09/22/16 07:29 Glucose (Fingerstick) 201mg/dL (70-99) 147mg/dL (70-99) 100mg/dL (70-99) White Blood Count 5.2x10^3/uL (4.0-11.0) Red Blood Count 4.57x10^6/uL (4.30-5.70) Hemoglobin 13.8g/dL (13.0-17.5) Hematocrit 41.9% (39.0-53.0) Mean Corpuscular Volume 92fL (79-100) Mean Corpuscular Hemoglobin 30pg (25-35) Mean Corpuscular Hemoglobin Concent 33g/dL (31-37) Red Cell Distribution Width 14.9% (11.5-14.5) Platelet Count 138x10^3/uL (140-400) Neutrophils (%) (Auto) 53% (31-73) Lymphocytes (%) (Auto) 32% (24-48) Monocytes (%) (Auto) 13% (0-9) Eosinophils (%) (Auto) 1% (0-3) Basophils (%) (Auto) 1% (0-3) Neutrophils # (Auto) 2.8x10^3uL (1.8-7.7) Lymphocytes # (Auto) 1.7x10^3/uL (1.0-4.8) Monocytes # (Auto) 0.7x10^3/uL (0.0-1.1) Eosinophils # (Auto) 0.1x10^3/uL (0.0-0.7) Basophils # (Auto) 0.0x10^3/uL (0.0-0.2) Prothrombin Time 18.4SEC (11.7-14.0) Prothromb Time International Ratio 1.6 (0.8-1.1) Sodium Level 139mmol/L (136-145) Potassium Level 3.9mmol/L (3.5-5.1) Chloride Level 103mmol/L (98-107) Carbon Dioxide Level 26mmol/L (21-32) Anion Gap 10 (6-14) Blood Urea Nitrogen 27mg/dL (8-26) Creatinine 1.7mg/dL (0.7-1.3) Estimated GFR (Cockcroft-Gault) 39.3 Glucose Level 92mg/dL (70-99) Calcium Level 9.2mg/dL (8.5-10.1) Review of Systems Review of Systems Denies chest pain, palpitations, sob, abdominal pain, n/v/d, calf pain, increased LE swelling or warmth, or fever/chills. Assessment and Plan Assessmemt and Plan Problems Medical Problems: (1) Deep venous thrombosis Status: Acute (2) DVT (deep venous thrombosis) Status: Acute Assessment: 1.) LLE deep and superficial venous thrombosis 2.) CAD, prior CABG and PCI stenting 3.) Diabetes Mellitus type II 4.) HTN 5.) HLD Plan: 1.) bridge to PO coumadin. 2.) discharge to home with f/u with pcp and vascular surgeon in 2-4 weeks. 3.) continue home medications as appropriate 4.) appreciate subspecialty input 5.) resume normal activity and diet as appropriate. Problems: Comment Review of Relevant I have reviewed the following items emily (where applicable) has been applied. Labs Laboratory Tests Test 09/20/16 16:35 09/20/16 21:04 09/21/16 05:00 09/21/16 08:11 Glucose (Fingerstick) 149mg/dL (70-99) 103mg/dL (70-99) 117mg/dL (70-99) White Blood Count 5.2x10^3/uL (4.0-11.0) Red Blood Count 4.67x10^6/uL (4.30-5.70) Hemoglobin 14.3g/dL (13.0-17.5) Hematocrit 42.1% (39.0-53.0) Mean Corpuscular Volume 90fL (79-100) Mean Corpuscular Hemoglobin 31pg (25-35) Mean Corpuscular Hemoglobin Concent 34g/dL (31-37) Red Cell Distribution Width 14.6% (11.5-14.5) Platelet Count 126x10^3/uL (140-400) Neutrophils (%) (Auto) 52% (31-73) Lymphocytes (%) (Auto) 34% (24-48) Monocytes (%) (Auto) 12% (0-9) Eosinophils (%) (Auto) 2% (0-3) Basophils (%) (Auto) 1% (0-3) Neutrophils # (Auto) 2.7x10^3uL (1.8-7.7) Lymphocytes # (Auto) 1.7x10^3/uL (1.0-4.8) Monocytes # (Auto) 0.6x10^3/uL (0.0-1.1) Eosinophils # (Auto) 0.1x10^3/uL (0.0-0.7) Basophils # (Auto) 0.0x10^3/uL (0.0-0.2) Prothrombin Time 16.6SEC (11.7-14.0) Prothromb Time International Ratio 1.4 (0.8-1.1) Sodium Level 138mmol/L (136-145) Potassium Level 4.0mmol/L (3.5-5.1) Chloride Level 104mmol/L (98-107) Carbon Dioxide Level 26mmol/L (21-32) Anion Gap 8 (6-14) Blood Urea Nitrogen 24mg/dL (8-26) Creatinine 1.3mg/dL (0.7-1.3) Estimated GFR (Cockcroft-Gault) 53.5 Glucose Level 68mg/dL (70-99) Calcium Level 9.3mg/dL (8.5-10.1) Test 09/21/16 16:37 09/21/16 20:39 09/22/16 05:00 09/22/16 07:29 Glucose (Fingerstick) 201mg/dL (70-99) 147mg/dL (70-99) 100mg/dL (70-99) White Blood Count 5.2x10^3/uL (4.0-11.0) Red Blood Count 4.57x10^6/uL (4.30-5.70) Hemoglobin 13.8g/dL (13.0-17.5) Hematocrit 41.9% (39.0-53.0) Mean Corpuscular Volume 92fL (79-100) Mean Corpuscular Hemoglobin 30pg (25-35) Mean Corpuscular Hemoglobin Concent 33g/dL (31-37) Red Cell Distribution Width 14.9% (11.5-14.5) Platelet Count 138x10^3/uL (140-400) Neutrophils (%) (Auto) 53% (31-73) Lymphocytes (%) (Auto) 32% (24-48) Monocytes (%) (Auto) 13% (0-9) Eosinophils (%) (Auto) 1% (0-3) Basophils (%) (Auto) 1% (0-3) Neutrophils # (Auto) 2.8x10^3uL (1.8-7.7) Lymphocytes # (Auto) 1.7x10^3/uL (1.0-4.8) Monocytes # (Auto) 0.7x10^3/uL (0.0-1.1) Eosinophils # (Auto) 0.1x10^3/uL (0.0-0.7) Basophils # (Auto) 0.0x10^3/uL (0.0-0.2) Prothrombin Time 18.4SEC (11.7-14.0) Prothromb Time International Ratio 1.6 (0.8-1.1) Sodium Level 139mmol/L (136-145) Potassium Level 3.9mmol/L (3.5-5.1) Chloride Level 103mmol/L (98-107) Carbon Dioxide Level 26mmol/L (21-32) Anion Gap 10 (6-14) Blood Urea Nitrogen 27mg/dL (8-26) Creatinine 1.7mg/dL (0.7-1.3) Estimated GFR (Cockcroft-Gault) 39.3 Glucose Level 92mg/dL (70-99) Calcium Level 9.2mg/dL (8.5-10.1) Laboratory Tests Test 09/21/16 16:37 09/21/16 20:39 09/22/16 05:00 09/22/16 07:29 Glucose (Fingerstick) 201mg/dL (70-99) 147mg/dL (70-99) 100mg/dL (70-99) White Blood Count 5.2x10^3/uL (4.0-11.0) Red Blood Count 4.57x10^6/uL (4.30-5.70) Hemoglobin 13.8g/dL (13.0-17.5) Hematocrit 41.9% (39.0-53.0) Mean Corpuscular Volume 92fL (79-100) Mean Corpuscular Hemoglobin 30pg (25-35) Mean Corpuscular Hemoglobin Concent 33g/dL (31-37) Red Cell Distribution Width 14.9% (11.5-14.5) Platelet Count 138x10^3/uL (140-400) Neutrophils (%) (Auto) 53% (31-73) Lymphocytes (%) (Auto) 32% (24-48) Monocytes (%) (Auto) 13% (0-9) Eosinophils (%) (Auto) 1% (0-3) Basophils (%) (Auto) 1% (0-3) Neutrophils # (Auto) 2.8x10^3uL (1.8-7.7) Lymphocytes # (Auto) 1.7x10^3/uL (1.0-4.8) Monocytes # (Auto) 0.7x10^3/uL (0.0-1.1) Eosinophils # (Auto) 0.1x10^3/uL (0.0-0.7) Basophils # (Auto) 0.0x10^3/uL (0.0-0.2) Prothrombin Time 18.4SEC (11.7-14.0) Prothromb Time International Ratio 1.6 (0.8-1.1) Sodium Level 139mmol/L (136-145) Potassium Level 3.9mmol/L (3.5-5.1) Chloride Level 103mmol/L (98-107) Carbon Dioxide Level 26mmol/L (21-32) Anion Gap 10 (6-14) Blood Urea Nitrogen 27mg/dL (8-26) Creatinine 1.7mg/dL (0.7-1.3) Estimated GFR (Cockcroft-Gault) 39.3 Glucose Level 92mg/dL (70-99) Calcium Level 9.2mg/dL (8.5-10.1) Medications Current Medications Heparin Sodium (Porcine) 7750 unit 7,750 unit 1X ONCE IV ; Start 09/18/16 at 15 :45; Stop 09/18/16 at 15:52; Status DC Heparin Sodium/ Dextrose 500 ml @ 0 mls/hr CONT PRN IV SEE I/O RECORD; Start at 15:45; Stop 09/18/16 at 15:52; Status DC Heparin Sodium (Porcine) (Heparin Sodium) 2,900 unit PRN Q6HRS PRN IV FOR UFH LEVEL LESS THAN 0.2; Start 09/18/16 at 15:45; Stop 09/18/16 at 15:52; Status DC Heparin Sodium (Porcine) (Heparin Sodium) 1,450 unit PRN Q6HRS PRN IV FOR UFH LEVEL 0.2 - 0.29; Start 09/18/16 at 15:45; Stop 09/18/16 at 15:52; Status DC Warfarin Sodium (Coumadin Per Pharmacy) 1 each PRN DAILY PRN MC PER PROTOCOL; Start 09/18/16 at 15:45; Stop 09/18/16 at 15:45; Status DC Enoxaparin Sodium (Lovenox Per Pharmacy Treatment Dosing) 1 each PRN DAILY PRN MC SEE COMMENTS; Start 09/18/16 at 16:00; Stop 09/22/16 at 13:13; Status DC Enoxaparin Sodium (Lovenox 100mg Syringe) 100 mg 1X ONCE SQ Last administered on 09/18/16t 17:11; Start 09/18/16 at 16:00; Stop 09/18/16 at 16:01; Status DC Ondansetron HCl (Zofran) 4 mg PRN Q8HRS PRN IV NAUSEA/VOMITING; Start 09/18/16 at 17:30; Stop 09/19/16 at 17:29; Status DC Morphine Sulfate 2 mg PRN Q2HR PRN IV PAIN; Start 09/18/16 at 17:30; Stop 09/18 at 22:03; Status DC Enoxaparin Sodium (Lovenox 100mg Syringe) 100 mg Q12HR SQ Last administered on 09/22/16 08:56; Start 09/18/16 at 23:00; Stop 09/22/16 at 13:13; Status DC Info (Anti-Coagulation Monitoring By Pharmacy) 1 each PRN DAILY PRN MC SEE COMMENTS Last administered on 09/19/16 08:45; Start 09/18/16 at 17:45; Stop at 07:22; Status DC Aspirin (Children'S Aspirin) 81 mg HS PO Last administered on 09/21/16 21:27; Start 09/18/16 at 22:15; Stop 09/22/16 at 13:13; Status DC Atorvastatin Calcium (Lipitor) 10 mg HS PO Last administered on 09/21/16 21:27 ; Start 09/18/16 at 22:15; Stop 09/22/16 at 13:13; Status DC Glyburide (Diabeta) 5 mg HS PO Last administered on 09/21/16 21:27; Start at 22:15; Stop 09/22/16 at 13:13; Status DC Metformin HCl (Glucophage) 500 mg BIDWMEALS PO Last administered on 09/20/16 16:40; Start 09/19/16 at 08:00; Stop 09/21/16 at 11:29; Status DC Metoprolol Tartrate (Lopressor) 25 mg BID PO Last administered on 09/22/16 08: 57; Start 09/18/16 at 22:15; Stop 09/22/16 at 13:13; Status DC Nitroglycerin (Nitrostat) 0.4 mg DAILY PRN SL CHEST PAIN; Start 09/18/16 at 22: 00; Stop 09/22/16 at 13:13; Status DC Losartan Potassium (Cozaar) 100 mg HS PO Last administered on 09/21/16 21:27; Start 09/18/16 at 22:15; Stop 09/22/16 at 13:13; Status DC Hydralazine HCl (Apresoline) 10 mg PRN Q4HRS PRN IVP ELEVATED BP, SEE COMMENTS ; Start 09/18/16 at 22:00; Stop 09/22/16 at 13:13; Status DC Acetaminophen (Tylenol) 650 mg PRN Q6HRS PRN PO pain; Start 09/18/16 at 22:00; Stop 09/22/16 at 13:13; Status DC Warfarin Sodium (Coumadin Per Pharmacy) 1 each PRN DAILY PRN MC SEE COMMENTS Last administered on 09/22/16 11:28; Start 09/19/16 at 12:15; Stop 09/22/16 at 13:13; Status DC Warfarin Sodium (Coumadin) 7.5 mg 1X WARF ONCE PO Last administered on 16:20; Start 09/19/16 at 16:00; Stop 09/19/16 at 16:01; Status DC Warfarin Sodium (Coumadin Per Pharmacy) 1 each PRN DAILY PRN MC SEE COMMENTS; Start 09/19/16 at 14:15; Status UNV Warfarin Sodium (Coumadin) 5 mg 1X ONCE PO ; Start 09/19/16 at 14:15; Stop at 14:16; Status UNV Warfarin Sodium (Coumadin) 5 mg 1X WARF ONCE PO Last administered on 16:41; Start 09/20/16 at 16:00; Stop 09/20/16 at 16:01; Status DC Iohexol (Omnipaque 300 Mg/ml) 100 ml STK-MED ONCE .ROUTE ; Start 09/21/16 at 10: 22; Stop 09/21/16 at 10:23; Status DC Lidocaine/Sodium Bicarbonate 20 ml 20 ml STK-MED ONCE IJ ; Start 09/21/16 at 10: 23; Stop 09/21/16 at 10:24; Status DC Heparin Sodium/ Sodium Chloride 500 ml @ As Directed STK-MED ONCE .ROUTE ; Start 09/21/16 at 10:23; Stop 09/21/16 at 10:24; Status DC Fentanyl Citrate (Fentanyl 2ml Vial) 100 mcg STK-MED ONCE .ROUTE ; Start at 11:08; Stop 09/21/16 at 11:09; Status DC Midazolam HCl (Versed) 2 mg STK-MED ONCE .ROUTE ; Start 09/21/16 at 11:08; Stop 09/21/16 at 11:09; Status DC Heparin Sodium/ Sodium Chloride 1,000 unit 1X ONCE IART Last administered on 11:41; Start 09/21/16 at 11:30; Stop 09/21/16 at 11:31; Status DC Lidocaine/Sodium Bicarbonate (Buffered Lidocaine 1%) 20 ml 1X ONCE IJ Last administered on 09/21/16 11:41; Start 09/21/16 at 11:30; Stop 09/21/16 at 11:31 ; Status DC Midazolam HCl (Versed) 2 mg 1X ONCE IV Last administered on 09/21/16 11:42; Start 09/21/16 at 11:30; Stop 09/21/16 at 11:31; Status DC Fentanyl Citrate (Fentanyl 2ml Vial) 100 mcg 1X ONCE IV Last administered on 11:42; Start 09/21/16 at 11:30; Stop 09/21/16 at 11:31; Status DC Iohexol (Omnipaque 300 Mg/ml) 100 ml 1X ONCE IART Last administered on 11:41; Start 09/21/16 at 11:30; Stop 09/21/16 at 11:31; Status DC Metformin HCl (Glucophage) 500 mg BIDWMEALS PO ; Start 09/23/16 at 17:00; Stop 09/23/16 at 17:00; Status DC Info (Do NOT chart on this entry -- for MONITORING) 1 each PRN DAILY PRN MC SEE COMMENTS; Start 09/21/16 at 11:30; Stop 09/22/16 at 13:13; Status DC Ondansetron HCl (Zofran) 4 mg PRN Q6HRS PRN IV NAUSEA/VOMITING Last administered on 09/21/16 12:24; Start 09/21/16 at 12:00; Stop 09/22/16 at 13:13 ; Status DC Warfarin Sodium (Coumadin) 6 mg 1X WARF ONCE PO Last administered on 17:05; Start 09/21/16 at 16:00; Stop 09/21/16 at 16:01; Status DC Insulin Aspart (Novolog) 0-5 UNITS TIDWMEALS SQ ; Start 09/21/16 at 19:30; Stop 09/22/16 at 13:13; Status DC Dextrose (Dextrose 50%-Water Syringe) 12.5 gm PRN Q15MIN PRN IV SEE COMMENTS; Start 09/21/16 at 19:00; Stop 09/22/16 at 13:13; Status DC Warfarin Sodium (Coumadin) 6 mg 1X WARF ONCE PO ; Start 09/22/16 at 16:00; Stop 09/22/16 at 16:00; Status DC Info (Anti-Coagulation Monitoring By Pharmacy) 1 each PRN DAILY PRN MC SEE COMMENTS; Start 09/22/16 at 11:45; Stop 09/22/16 at 13:13; Status DC Active Scripts Active Reported Metoprolol Tartrate 25 Mg Tablet 25 Mg PO BID Aspirin 325 Mg Tablet 1 Tab PO HS Glyburide 5 Mg Tablet 5 Mg PO HS Metformin Hcl 500 Mg Tablet 500 Mg PO BID Losartan Potassium 100 Mg Tablet 100 Mg PO HS 30 Days Atorvastatin Calcium 10 Mg Tablet 10 Mg PO HS Nitrostat (Nitroglycerin) 0.4 Mg Tab.subl 0.4 Mg SL PRN Vitals/I & O Vital Sign - Last 24 Hours 09/21/16 09/21/16 09/21/16 09/21/16 19:38 19:56 21:27 21:27 Temp 97.4 97.4 Pulse 79 79 79 Resp 16 B/P 154/78 154/78 154/78 Pulse Ox 94 O2 Delivery Room Air Room Air 09/21/16 09/22/16 09/22/16 09/22/16 23:00 03:55 07:39 08:00 Temp 97.8 97.6 97.7 97.8 97.6 97.7 Pulse 71 73 71 Resp 16 16 18 B/P 131/77 125/70 146/78 Pulse Ox 93 95 94 O2 Delivery Room Air Room Air Room Air Room Air 09/22/16 09/22/16 08:57 11:00 Temp 97.7 97.7 Pulse 74 63 Resp 18 B/P 146/78 133/70 Pulse Ox 94 O2 Delivery Room Air Intake and Output 09/21/16 09/21/16 09/22/16 15:00 23:00 07:00 Intake Total 600 ml 500 ml Balance 600 ml 500 ml CASTLE,NIAL K III DO Sep 22, 2016 16:01
[2016-09-23] MEDS ORDERED: METFORMIN 500 MG TABLET. PO SCH (17:00)
--- NOTE | 2016-09-28 21:41 | DS ---
DATE OF DISCHARGE: 09/22/2016 ADMISSION DIAGNOSIS: Deep venous thrombosis. DISCHARGE DIAGNOSIS: Postop inferior vena cava filter placement. HOSPITAL COURSE: The patient is a pleasant 76-year-old male who presented with a DVT. He was admitted. We thinned his blood with Lovenox and Coumadin. We consulted Vascular Surgery. He got an IVC filter. Post-procedure, he did well. We discharged to home. DISPOSITION: Home. ACTIVITY: As tolerated. DIET: Low sodium. MEDICATIONS: Please see the MRAD. TOTAL TIME: 38 minutes. ISAIAH PHILLIPS DO DR: LANDON/jeison JOB#: [id number] / [id number]
== END 2016-09-22 12:30 | disposition home or self-care (01) | DRG 252 ==
LOC: ER 14:55 → ED HOLD 15:44 → 2 NORTH 20:03
PROVIDERS: ADMIT Internal Medicine Hematology & Oncology; ATTEND Internal Medicine Hematology & Oncology
PROC: 06H03DZ Insertion of Intraluminal Device into Inferior Vena Cava, Percutaneous Approach (ICD-10-PCS; principal; 2016-09-21)
PROC: B5191ZZ Fluoroscopy of Inferior Vena Cava using Low Osmolar Contrast (ICD-10-PCS; 2016-09-21)
DX: I82.432 Acute embolism and thrombosis of left popliteal vein (principal); N17.0 Acute kidney failure with tubular necrosis; I82.422 Acute embolism and thrombosis of left iliac vein; E11.9 Type 2 diabetes mellitus without complications; E78.00 Pure hypercholesterolemia, unspecified; E78.5 Hyperlipidemia, unspecified; I10 Essential (primary) hypertension; I25.10 Atherosclerotic heart disease of native coronary artery without angina pectoris; Z96.652 Presence of left artificial knee joint; Z79.01 Long term (current) use of anticoagulants; Z79.82 Long term (current) use of aspirin; Z82.49 Family history of ischemic heart disease and other diseases of the circulatory system; Z85.828 Personal history of other malignant neoplasm of skin; Z90.49 Acquired absence of other specified parts of digestive tract; Z95.1 Presence of aortocoronary bypass graft; Z98.61 Coronary angioplasty status
CPT/HCPCS: 36415; 37191; 76937; 80048; 82947; 85027; 85610; 85730; 93971; 96372; C1713; C1769; C1892; C1894; J1650; J1815; J2250; J2405; J3010; Q9967; 99285-25

== ENCOUNTER → 2016-09-18 | Outpatient (CLI) | payer MEDICARE, BC ==
[2016-04-07 10:56] VITALS: BP 102/65
[~2016-09-18] MED LIST: ASPI325T11 PO; ASPI325T4 PO; ASPI81TA2 PO; ATOR10TA60 PO; ATOR40TA59 PO; CHOL100013 PO; CLOP75TA27 PO; FURO40TA4 PO; GLYB5TAB3 PO; LOSA100T6 PO; METF500T4 PO; METO25TA4 PO; NITR0.4T SL; OMEG500C3 PO; PRAS10TA4 PO
--- NOTE | 2016-09-18 14:45 | KCIC ---
PROCEDURE Left lower extremity venous Doppler sonogram. HISTORY Pain. TECHNIQUE Grayscale and color Doppler sonographic imaging of the left lower extremity veins with spectral waveform analysis was performed. COMPARISON None. FINDINGS There is venous thrombus involving the left iliac, common femoral, superficial femoral, peroneal and greater saphenous veins. IMPRESSION Extensive left lower extremity deep and superficial venous thrombosis. This information was communicated to the referring physician, Dr. Guardado, by the machine binding folder at the time of the exam. Electronically signed by: Dayna Kapadia (Sep 18, 2016 14:44:36)
== END | disposition home or self-care (01) ==
LOC: KCIC US 13:55
PROVIDERS: ATTEND Internal Medicine Cardiovascular Disease
DX: M79.604 Pain in right leg (principal); M79.89 Other specified soft tissue disorders
CPT/HCPCS: 93971

== ENCOUNTER → 2017-03-07 | Outpatient (CLI) | payer MEDICARE ==
[~2017-03-07] VITALS: Ht 172.7 cm; Wt 98.4 kg
[~2017-03-07] MED LIST changes: +ASPI-630 PO; +ASPI325T8 PO; -ASPI81TA2 PO; +CITA20TA5 PO; -CLOP75TA27 PO; +CLOP75TA57 PO; +IOHEXOL 300 MG/ML 100ML VIAL. IART ONE; +IOHEXOL 300 MG/ML 100ML VIAL. ONE; +LIDOCAINE 1% / SOD BICARB 8.4% 20 ML VIAL. IJ ONE; +NITR0.4T SL; +WARF-78 PO
[2017-03-07 07:37] LABS: BASO % 1 % (0-3); EOS % 1 % (0-3); HEMATOCRIT 44.6 % (39.0-53.0); LYMPH # 1.7 x10^3/uL (1.0-4.8); LYMPH % 36 % (24-48); MEAN CORPUSCULAR HEMOGLOBIN 31 pg (25-35); MEAN CORPUSCULAR HGB CONC 34 g/dL (31-37); MEAN CORPUSCULAR VOLUME 93 fL (79-100); MONO % 10 % (0-9); NEUT % 53 % (31-73); PLATELET COUNT 146 x10^3/uL (140-400); RED BLOOD COUNT 4.79 x10^6/uL (4.30-5.70); RED CELL DISTRIBUTION WIDTH 13.7 % (11.5-14.5); WHITE BLOOD COUNT 4.6 x10^3/uL (4.0-11.0)
[2017-03-07 07:41] VITALS: BP 162/91
[2017-03-07 07:42] LABS: INR 1.3 (0.8-1.1); PROTHROMBIN TIME PATIENT 15.8 SEC (11.7-14.0)
[2017-03-07 08:25] LABS: CALCIUM 9.1 mg/dL (8.5-10.1); CREATININE 1.3 mg/dL (0.7-1.3); GFR 53.5; POTASSIUM 4.3 mmol/L (3.5-5.1)
[2017-03-07 09:21] VITALS: BP 176/89
[2017-03-07 09:32] VITALS: BP 185/89
[2017-03-07 09:47] VITALS: BP 172/99
[2017-03-07 10:00] VITALS: BP 197/106
[2017-03-07 10:15] VITALS: BP 177/92
--- NOTE | 2017-03-07 14:26 | RAD ---
Fluoroscopically guided IVC filter removal 03/07/2017 Indication: Filter no longer needed. Discussion: The risks and benefits of the procedure were discussed the patient. Informed consent was obtained. The patient was brought to the fluoroscopy suite and a timeout procedure was performed. The right neck was prepped and draped using maximum sterile barrier technique. All elements of maximal sterile barrier technique including the use of a cap, mask, sterile gown, sterile gloves, large sterile sheet, appropriate hand hygiene, and 2% chlorhexidine for cutaneous antisepsis (or acceptable alternative antiseptic per current guidelines) were followed for this procedure. Following informed consent, and a timeout procedure, the patient was prepped and draped in the usual sterile fashion. Ultrasound interrogation of the right neck revealed patency and compressibility of the right internal jugular vein. A 21-gauge micropuncture was then used to gain access to this vein under ultrasound guidance. A hard copy ultrasound image was recorded. The needle was exchanged over a wire for a sheath. A guidewire was advanced into the inferior vena cava. Fluoroscopic imaging was performed demonstrating expected position of the previously existing [place] IVC filter. An inferior venacavogram was performed through the sheath demonstrating no evidence of filter thrombus, or thrombus within the IVC. The helical the filter was then snared, and a filter retrieval sheath advanced over the filter. The filter retrieval sheath was removed through an outer sheath intact. Repeat venacavogram was performed demonstrating no immediate complication. Patient tolerated the procedure well. The sheath in the right neck was removed and manual pressure held to achieve hemostasis. A sterile dressing was applied. Sedation: Conscious sedation was administered for 30 minutes. The patient was monitored by a qualified independent observer throughout the time of sedation. Please refer to the medical record for exact doses of medications utilized to achieve moderate sedation. Fluoroscopy time: 4.5 MINS Dose area product: [id number] Impression: Successful fluoroscopically guided removal of a inferior vena cava filter as described
== END | disposition home or self-care (01) ==
LOC: INTRAD 07:05
PROVIDERS: ATTEND Surgery
DX: Z45.2 Encounter for adjustment and management of vascular access device (principal); I25.10 Atherosclerotic heart disease of native coronary artery without angina pectoris; E78.00 Pure hypercholesterolemia, unspecified; I10 Essential (primary) hypertension; E66.9 Obesity, unspecified; Z68.33 Body mass index [BMI] 33.0-33.9, adult; K21.9 Gastro-esophageal reflux disease without esophagitis; E11.9 Type 2 diabetes mellitus without complications; Z87.39 Personal history of other diseases of the musculoskeletal system and connective tissue; Z79.01 Long term (current) use of anticoagulants; Z86.718 Personal history of other venous thrombosis and embolism; Z90.49 Acquired absence of other specified parts of digestive tract; Z86.39 Personal history of other endocrine, nutritional and metabolic disease
CPT/HCPCS: 36415; 37193; 76937; 80048; 85025; 85610; 99152; 99153; A4215; C1769; C1892; C1894; J1644; Q9967

== ENCOUNTER → 2017-08-12 | Outpatient (CLI) | payer MEDICARE | END | disposition home or self-care (01) | LOC: ECHO 09:51 | DX: I25.10 Atherosclerotic heart disease of native coronary artery without angina pectoris (principal); I35.1 Nonrheumatic aortic (valve) insufficiency | CPT/HCPCS: 93306 ==

== ENCOUNTER → 2017-12-27 | Outpatient (CLI) | payer MEDICARE ==
[2017-12-27] MEDS: REGADENOSON 0.4 MG/5 ML DISP.SYRIN. IV (10:14)
== END | disposition home or self-care (01) ==
LOC: NM 10:08
DX: I25.10 Atherosclerotic heart disease of native coronary artery without angina pectoris (principal); E11.9 Type 2 diabetes mellitus without complications; I10 Essential (primary) hypertension; E78.5 Hyperlipidemia, unspecified; K21.9 Gastro-esophageal reflux disease without esophagitis; E78.00 Pure hypercholesterolemia, unspecified; I25.2 Old myocardial infarction; Z96.652 Presence of left artificial knee joint; Z86.718 Personal history of other venous thrombosis and embolism; Z95.1 Presence of aortocoronary bypass graft; Z86.39 Personal history of other endocrine, nutritional and metabolic disease; Z87.39 Personal history of other diseases of the musculoskeletal system and connective tissue
CPT/HCPCS: 78452; 93017; 96374; 96375; 96376; A9500; J2785

== ENCOUNTER 2019-02-06 06:54 | Outpatient (CLI) | payer MEDICARE ==
[2019-02-06] VITALS (10 sets, daily range): BP systolic 85–158; BP diastolic 61–85
[~2019-02-06] VITALS: Ht 172.7 cm; Wt 97.5 kg
[~2019-02-06 06:54] MED LIST changes: -CITA20TA5 PO; +CITA20TA6 PO; -IOHEXOL 300 MG/ML 100ML VIAL. IART ONE; -IOHEXOL 300 MG/ML 100ML VIAL. ONE; -LIDOCAINE 1% / SOD BICARB 8.4% 20 ML VIAL. IJ ONE; +LOSA100T14 PO; -LOSA100T6 PO; +METF500T16 PO; -METF500T4 PO
[2019-02-06] MEDS ORDERED: IODIXANOL 320 MG/ML 100 ML VIAL. ONE (07:31)
[2019-02-06] MEDS ORDERED: LIDOCAINE 1% Multi-Dose 20 ML VIAL. ONE (07:45)
[2019-02-06 07:51] LABS: HEMATOCRIT 44.9 % (39.0-53.0); HEMOGLOBIN 15.2 g/dL (13.0-17.5); RED BLOOD COUNT 4.77 x10^6/uL (4.30-5.70); RED CELL DISTRIBUTION WIDTH 13.7 % (11.5-14.5); WHITE BLOOD COUNT 4.8 x10^3/uL (4.0-11.0)
[2019-02-06 08:01] LABS: CALCIUM 9.7 mg/dL (8.5-10.1); CREATININE 1.5 mg/dL (0.7-1.3); GFR 45.1; POTASSIUM 4.4 mmol/L (3.5-5.1)
[2019-02-06] MEDS ORDERED: MIDAZOLAM HCL/PF 5 MG/5 ML VIAL. ONE (08:13)
[2019-02-06] MEDS ORDERED: HEPARIN for IV BOLUS 10,000 UNIT/10 ML VIAL. ONE (08:13)
[2019-02-06] MEDS ORDERED: fentaNYL PF VIAL 100 MCG/2 ML VIAL ONE (08:13)
[2019-02-06] MEDS ORDERED: LISI-338 PO (08:31)
[2019-02-06] MEDS ORDERED: DEXTROSE 50% 25 GM / 50ML DISP.SYRIN. IV ONE ×2 (08:34→08:45)
[2019-02-06] MEDS ORDERED: LIDOCAINE 1% Multi-Dose 20 ML VIAL. INJ ONE (08:45)
[2019-02-06] MEDS ORDERED: fentaNYL PF VIAL 100 MCG/2 ML VIAL IV ONE (08:45)
[2019-02-06] MEDS ORDERED: IODIXANOL 320 MG/ML 100 ML VIAL. IART ONE (08:45)
[2019-02-06] MEDS ORDERED: MIDAZOLAM HCL/PF 5 MG/5 ML VIAL. IV ONE (08:45)
[2019-02-06] MEDS ORDERED: IV 1/2 NORMAL SALINE 1,000 ML IV SCH (10:40)
--- NOTE | 2019-02-06 10:40 | PDOC ---
MODERATE SEDATION ASSESSMENT RISKS/ALTERNATIVES Risks/Alternatives Risks and alternatives of this type of sedation and procedure discussed with: RISK/ALTERNATIVES: Patient H & P ON CHART H & P H & P on chart and reviewed for co-morbid conditions and appropriate labs. H&P ON CHART: Yes STATUS PREG STATUS ASSESSED: N/A MEDS/ALLERGIES REVIEWED Meds/Allergies Reviewed Medications and Allergies including time and route of recently administered narcotics and sedatives. MEDS/ALLERGIES REVIEWED: Yes ASA RATING ASA RATING: III AIRWAY ASSESSMENT Airway Assessment Airway patency, oral function limitations, presence of caps, crowns, dentures, partials, and ability to extend neck assessed. AIRWAY ASSESSMENT: Yes MALLAMPATI SCORE MALLAMPATI SCORE: II PRE-SEDATION ASSESSMENT PRE-SEDATION ASSESSMENT: Yes KRISTIAN DE JESUS MD Feb 06, 2019 10:40
[2019-02-06] MEDS ORDERED: NITROGLYCERIN SUBLINGUAL 0.4 MG BOTTLE OF 25. SL PRN (10:45)
[2019-02-06] MEDS ORDERED: ACETAMINOPHEN 325 MG TABLET. PO PRN (10:45)
--- NOTE | 2019-02-06 10:50 | CARD ---
MR#: [id number] Date of Study: 02/06/2019 Ordering Physician: KRISTIAN DE JESUS, Referring Physician: KRISTIAN DE JESUS, Tech: DANIELLA CARRILLO RTR APPROVED REPORT Patient StatusCLI Equal Opportunity Representative: DANIELLA CARRILLO RTR Procedure(s) performed: Aortogram with bilateral lower extremity runoff MODERATE SEDATION TIME: 51 MINUTES FLUORO TIME: 6.4 MIN DOSE: 187 GYCM2 CONTRAST: 102 INDICATION FOR PROCEDURE The indication(s) include : Peripheral artery disease with claudication. PROCEDURE NARRATIVE After explaining the risks, benefits and alternative options, informed consent was obtained from leslie ent. Patient was brought to the cardiac Domestic Cleaner and his left groin was prepped and draped in the usu al fashion. 20 mL of 2% lidocaine was infiltrated into the skin and subcutaneous tissues for local an esthesia. Arterial access was obtained the left common femoral artery and a 5 [place] sheath was inser sundar. 5 [place] pigtail catheter was used to perform aortogram. The aortic stewart was crossed over usin g 5 [place] crossover catheter which was then exchanged to a 4 [place] angled glide catheter and with t he tip positioned in the right external iliac artery, selective right lower extremity angiography was performed. Contrast injections were performed through the sheath in the left groin for left lower ex tremity angiography. Patient tolerated the procedure well. Hemostasis in the left groin was achieved using mynx closure device. There were no immediate complications. FINDINGS 1. The distal descending aorta was heavily calcified without any significant stenosis. 2. No significant stenosis involving bilateral common and external iliac arteries. 3. The right common femoral artery showed tandem heavily calcified lesions of 80% stenosis severity. The left common femoral artery showed 30% stenosis. 4. The right superficial femoral artery showed luminal irregularities without any critical lesions. The left superficial femoral artery showed calcified 30% stenosis in the proximal segment and several calcified areas in the mid to distal segments of 40-50% stenosis severity. 5. The right popliteal artery was not well-visualized due to knee replacement surgery but based on g ood flow in the vessel there is probably no critical lesion. The left popliteal artery showed 60% karyna nosis. 6. The right anterior tibial artery was short 100% chronic total occlusion proximally. The posterior tibial and peroneal artery showed moderate diffuse disease in the mid to distal segments. 7. There is three-vessel runoff below the knee left lower extremity in the proximal to midsegments. The distal segments were not visualized. Conclusion Bilateral lower extremity peripheral artery disease as described above with critical lesion in right common femoral artery, not amenable for percutaneous intervention based on the location. Recommendations Vascular surgery referral for possible RCFA endarterectomy Signed by : Kristian De Jesus, Electronically Approved : 02/06/2019 10:50:46
--- NOTE | 2019-02-06 12:45 | NUR ---
Discharge Note: TAHIR MCALLISTER Discharge instructions and discharge home medications reviewed with Patient and a copy given. All questions have been answered and understanding verbalized. The following instructions and handouts were given: Post Moderate Sedation; Groin Management Discontinued lines and drains: Peripheral IV intact. Patient discharged to Home or Self Care with Spouse via Wheelchair
== END 2019-02-06 12:40 | disposition home or self-care (01) ==
LOC: CCL 06:54
PROVIDERS: ATTEND Internal Medicine Cardiovascular Disease
DX: E11.51 Type 2 diabetes mellitus with diabetic peripheral angiopathy without gangrene (principal); I70.211 Atherosclerosis of native arteries of extremities with intermittent claudication, right leg; I25.118 Atherosclerotic heart disease of native coronary artery with other forms of angina pectoris; E78.00 Pure hypercholesterolemia, unspecified; I10 Essential (primary) hypertension; J40 Bronchitis, not specified as acute or chronic; E66.9 Obesity, unspecified; K21.9 Gastro-esophageal reflux disease without esophagitis; M19.90 Unspecified osteoarthritis, unspecified site; Z80.8 Family history of malignant neoplasm of other organs or systems; Z82.49 Family history of ischemic heart disease and other diseases of the circulatory system; Z98.49 Cataract extraction status, unspecified eye; Z95.1 Presence of aortocoronary bypass graft; Z79.899 Other long term (current) drug therapy; Z79.01 Long term (current) use of anticoagulants; Z86.718 Personal history of other venous thrombosis and embolism; Z90.49 Acquired absence of other specified parts of digestive tract; Z68.32 Body mass index [BMI] 32.0-32.9, adult; Z96.653 Presence of artificial knee joint, bilateral
CPT/HCPCS: 36246; 36415; 75625; 75716; 80048; 82962; 85027; 85610; 99152; 99153; C1713; C1769; C1892; G0269; J1644; J2250; J3010; J7042; Q9967

== ENCOUNTER 2019-07-01 06:19 | Observation (INO) | payer MEDICARE ==
[2019-07-01] VITALS (11 sets, daily range): BP systolic 98–173; BP diastolic 63–87
[~2019-07-01] VITALS: Ht 172.7 cm; Wt 98.0 kg
[~2019-07-01 06:19] MED LIST changes: +BACITRACIN 50,000 UNIT in IV NORMAL SALINE 500ML BAG 500 ML IRR ONE; +LISI-338 PO; -NITR0.4T SL; +NITR0.4T24 SL
[2019-07-01] MEDS ORDERED: BUPIVACAINE-EPI 0.5%-1:200000 MPF 30 ML VIAL. ONE (06:58)
[2019-07-01] MEDS ORDERED: LIDOCAINE 1% PF 2 ML VIAL. ID PRN (07:00)
[2019-07-01] MEDS ORDERED: fentaNYL PF VIAL 100 MCG/2 ML VIAL IV PRN ×2 (07:00)
[2019-07-01] MEDS ORDERED: IV RINGERS,LACTATED 1000ML 1,000 ML IV SCH (07:00)
[2019-07-01] MEDS ORDERED: PROCHLORPERAZINE 10 MG/2 ML VIAL. IV PRN (07:00)
[2019-07-01] MEDS ORDERED: HYDROmorphone 2 MG/ML VIAL IV PRN ×3 (07:00→12:45)
[2019-07-01] MEDS ORDERED: APIX5TAB PO (07:12)
[2019-07-01] MEDS ORDERED: fentaNYL PF VIAL 250 MCG/5 ML VIAL ONE (07:15)
[2019-07-01] MEDS ORDERED: ROCURONIUM 50 MG/5 ML VIAL. ONE (07:15)
[2019-07-01] MEDS ORDERED: MIDAZOLAM HCL/PF 2 MG/2 ML VIAL. ONE (07:18)
[2019-07-01] MEDS: IV NORMAL SALINE 1000ML BAG 1,000 ML IV SCH ×3 (07:19→09:41)
[2019-07-01] MEDS ORDERED: INSULIN LISPRO 100 UNIT/ML 3ML VIAL for OP,RR ONLY. SQ PRN (07:30)
[2019-07-01] MEDS ORDERED: ePHEDrine PF IN SALINE 50 MG/10 ML SYRINGE. IV ONE ×2 (07:43→09:34)
[2019-07-01] MEDS ORDERED: ceFAZolin 2GM PREMIX 2 GM/50 ML BAG IV ONE (08:00)
[2019-07-01] MEDS ORDERED: PROPOFOL 20 ML IV ONE (08:02)
[2019-07-01] MEDS ORDERED: ONDANSETRON PF 4 MG/2 ML VIAL. ONE ×3 (08:02→09:02)
[2019-07-01] MEDS ORDERED: DEXAMETHASONE SOD PHOS 4 MG/ML VIAL ONE ×2 (08:02→09:02)
[2019-07-01] MEDS ORDERED: LIDOCAINE 2% PF 5 ML VIAL. ONE (08:02)
[2019-07-01] MEDS ORDERED: SEVOFLURANE 61 TO 120 MINUTES. IH ONE (08:03)
[2019-07-01] MEDS ORDERED: ROCURONIUM 100 MG/10 ML VIAL. ONE (08:33)
[2019-07-01] MEDS ORDERED: SEVOFLURANE > 120 MINUTES. IH ONE (09:22)
[2019-07-01] MEDS ORDERED: PHENYLEPHRINE in 0.9% NACL PF 1 MG/10 ML SYRINGE. IV ONE (09:35)
[2019-07-01] MEDS ORDERED: GLYCOPYRROLATE 1 MG/5 ML VIAL. ONE (09:42)
[2019-07-01] MEDS ORDERED: NEOSTIGMINE METHYLSULFATE 5 MG/5 ML SYRINGE. ONE (09:42)
[2019-07-01] MEDS ORDERED: NALOXONE 0.4 MG/ML VIAL. IV PRN (09:45)
[2019-07-01] MEDS ORDERED: ONDANSETRON PF 4 MG/2 ML VIAL. IVP PRN (09:45)
[2019-07-01] MEDS ORDERED: 0.9 % SODIUM CHLORIDE 10 ML DISP.SYRIN. IV PRN (09:45)
--- NOTE | 2019-07-01 09:52 | PDOC4 ---
Operative Note Operative Note Operative Note: Preoperative Diagnosis: Right inguinal hernia, umbilical hernia Postoperative Diagnosis: Same Procedure: Right inguinal hernia repair with mesh, umbilical hernia repair with mesh Surgeon: Juan Motorcycle Mechanic Apprentice: Jose FERREIRA Anesthesia: Gen. EBL: 30 mL Specimen: None Drains: None Complications: None Indication: The patient is an 79-year-old male who is referred with a right angle hernia and umbilical hernia. He is interested in operative repair. The details and risks of surgery were discussed. The risks include bleeding, infection, urinary retention, recurrence, pain, anesthetic risk, potential need for additional surgery or procedure. He understands and would like to proceed. Description: The patient was taken to the operating room and placed supine on the operating table. Gen. anesthesia was performed. The abdomen and right groin were shaved and prepped with ChloraPrep and draped in a standard surgical manner . An incision was made in the right groin with a scalpel. Cautery dissection was carried down to the aponeurosis. The aponeurosis was opened down to the external ring. The contents of the inguinal canal were digitally mobilized and encircled with Willi drain. A cord lipoma was excised and discarded. The patient had a large indirect hernia sac which was mobilized from the surrounding cord structures. The sac was fully reduced and the defect filled with a Phasix mesh plug. The plug was sutured around its periphery with 2-0 Vicryl. The entire inguinal floor was then reinforced with a keyhole mesh patch. The patch was also sutured into position with 2-0 Vicryl. A slit was made to accommodate the cord structures. Upon completion the mesh rested well providing full coverage of the inguinal floor and the plug was intact deep to it. The external oblique was closed over the mesh with 2-0 Vicryl. The subcutaneous tissue was approximated with 2-0 Vicryl. The skin was closed with 4-0 Monocryl. Next an infraumbilical i ncision was made with a scalpel. Cautery dissection was carried onto the fascia. The umbilical tissue was elevated off the fascia exposing two adjacent hernia defects. The in between fascial bridge was divided forming a single hernia defect. A preperitoneal plane was developed circumferentially. A medium sized Ventralex ST mesh was then placed in this plane. The mesh was sutured into position at the 12, 3, 6, 9:00 positions using 0 Prolene in a horizontal mattress fashion. The fascial edges were closed over the mesh with 0 Prolene. The umbilicus was secured back to the fascia with 0 Vicryl. The subcutaneous tissues closed with 3-0 Vicryl and skin approximated with 4-0 Monocryl. Both incisions were infiltrated with half percent Marcaine with epinephrine. Steri- Strips and dressings were applied. The patient tolerated the procedure well and was sent to the recovery room in stable condition. At the end of the case all counts were correct. BOBBY MCKENNA MD Jul 01, 2019 09:52
[2019-07-01] MEDS: MORPHINE SULFATE 2 MG/ML VIAL. IV PRN ×2 (10:30→10:39)
[2019-07-01] MEDS: IV 1/2 NORMAL SALINE 1,000 ML IV SCH (11:16)
[2019-07-01] MEDS: LISINOPRIL 5 MG TABLET. PO SCH (11:18)
[2019-07-01] MEDS: HYDROcodone/APAP 5/325MG 1 TAB TABLET PO PRN ×4 (11:19→20:57)
[2019-07-01] MEDS: METOPROLOL TART IMMED RELEASE 25 MG TABLET. PO SCH ×2 (11:19→21:01)
[2019-07-01] MEDS ORDERED: METF500T16 PO (11:44)
[2019-07-01] MEDS: APIXABAN 5 MG TABLET. PO SCH (20:57)
[2019-07-01] MEDS ORDERED: ATORVASTATIN CALCIUM 10 MG TABLET. PO SCH (21:00)
[2019-07-01] MEDS ORDERED: glyBURIDE 5 MG TABLET PO SCH (21:00)
[2019-07-02] MEDS: IV 1/2 NORMAL SALINE 1,000 ML IV SCH (02:21)
[2019-07-02 03:00] VITALS: BP 131/76
[2019-07-02] MEDS: HYDROcodone/APAP 5/325MG 1 TAB TABLET PO PRN ×2 (03:34→13:42)
[2019-07-02 07:00] VITALS: BP 97/41
[2019-07-02] MEDS: IV NORMAL SALINE 1000ML BAG 1,000 ML IV SCH ×2 (07:30→09:41)
[2019-07-02] MEDS: METOPROLOL TART IMMED RELEASE 25 MG TABLET. PO SCH (09:07)
[2019-07-02] MEDS: LISINOPRIL 5 MG TABLET. PO SCH (09:08)
--- NOTE | 2019-07-02 09:42 | NUR ---
SW following. Discussed with RN. Pt is from home with . RN advised pt does outpatient therapy. RN advised no SW needs and anticipates possible discharge home today. SW advised for pt to be given a script for outpatient therapy. SW will continue to follow, should any discharge needs arise.
[2019-07-02] MEDS: APIXABAN 5 MG TABLET. PO SCH (10:55)
[2019-07-02 11:00] VITALS: BP 119/68
[2019-07-02] MEDS ORDERED: ANTI-COAG MONITOR BY PHARMACY. MC PRN (11:15)
--- NOTE | 2019-07-02 12:29 | PDOC ---
SURGICAL PROGRESS NOTE Subjective feels pretty well urinating pain managed has not walked yet Vital Signs Vital Signs Date Time Temp Pulse Resp B/P (MAP) Pulse Ox O2 Delivery O2 Flow Rate FiO2 07/02/19 11:00 97.6 64 16 119/68 (85) 94 Room Air 97.6 07/01/19 21:57 2.0 I&O Intake and Output 07/02/19 07:00 Intake Total 3100 ml Output Total 830 ml Balance 2270 ml Intake Oral 1450 ml IV Total 1650 ml Output Urine Total 800 ml Estimated Blood Loss 30 ml # Voids 1 General: Alert, Oriented X3, Cooperative Abdomen: Soft, Other (ND, dressing dry) Labs Laboratory Tests Test 07/01/19 06:49 07/01/19 10:05 07/01/19 11:12 Glucose (Fingerstick) 91 mg/dL (70-99) 162 mg/dL (70-99) 184 mg/dL (70-99) Assessment/Plan s/p hernia repair plan home today DOMENICO DE LA VEGA APRN Jul 02, 2019 12:29
[2019-07-02] MEDS ORDERED: HYDR-2761 PO (12:30)
--- NOTE | 2019-07-02 12:35 | SNU/HH DC ---
DISCHARGE WITH HOME HEALTH DISCHARGE INFORMATION: Discharge Date: Jul 02, 2019 Condition on Discharge: Stable HOME HEALTH: Face to Face: I certify this patient is under my care and that I, or a nurse practitioner or physician's medical office assistant working with me, had a face to face encounter that meets the physician face to face encounter requirements with this patient on []. Medical Complications: CABG, DM, HTN, Other (hernia repair ) RN For Eval/Treatment: No Physical Therapy For: Other: (home health as previously ordered ) Occupational Therapy For: Evaluation/Treatment Pt Meets Homebound Status: Fatigue w/ amb., Limited distance walking, Other: (recent surgery) POST DISCHARGE ORDERS: Activity Instructions for Disc: Bedrest today Weight Bearing Status after Di: As tolerated DIET AFTER DISCHARGE: Cardiac Wound/Incision Care: Keep wound/cast CDI, May get incision wet, No wound care needed Other wound/incision instructi: can remove dressings and leave uncovered CHECKS AFTER DISCHARGE: Checks after discharge: Check blood press - daily, Check blood sugar, ac/hs, Check your Temp as needed, Weigh Yourself Daily FOLLOW-UP: PCP to follow Home Health: Dr River Follow up with: Dr Martinez 2 weeks, call to schedule [phone] TREATMENT/EQUIPMENT ORDERS: Adaptive Equipment Issued: None CERTIFICATION STATEMENT: Certification Statement: Certification Statement: Based on the above finding, I certify that this patient is confined to the home and needs intermittent usp care, physical therapy and/or speech therapy, or continues to need occupational therapy.~ This patient is under my care, and I have initiated the establishment of the plan of care.~ This patient will be followed by myself or a community physician who will periodically review the plan of care. Home Meds Active Scripts Hydrocodone Bit/Acetaminophen (HYDROCODONE-APAP 5-325 ) 1 Tab Tablet, 1 TAB PO PRN Q4HRS PRN for MILD PAIN 1-3, #30 TAB 0 Refills Prov:DOMENICO DE LA VEGA VERIFYING MACHINE OPERATOR 07/02/19 Reported Medications Metformin Hcl (METFORMIN HCL) 500 Mg Tablet, 500 MG PO BIDWMEALS for ANTI- DIABETIC, TAB 0 Refills 07/01/19 Apixaban (ELIQUIS) 5 Mg Tablet, 5 MG PO BID for blood thinner, TAB 07/01/19 Lisinopril (LISINOPRIL) 5 Mg Tablet, 1 TAB PO DAILY for blood pressure, #30 TAB 5 Refills 02/06/19 Metoprolol Tartrate (METOPROLOL TARTRATE) 25 Mg Tablet, 25 MG PO BID for FOR HYPERTENSION, #60 TAB 0 Refills 09/18/16 Glyburide (GLYBURIDE) 5 Mg Tablet, 5 MG PO HS, #90 09/18/16 Losartan Potassium (LOSARTAN POTASSIUM) 100 Mg Tablet, 100 MG PO HS for 30 Days 09/18/16 Atorvastatin Calcium (ATORVASTATIN CALCIUM) 10 Mg Tablet, 10 MG PO HS, #90 09/18/16 Nitroglycerin (NITROSTAT) 0.4 Mg Tab.subl, 0.4 MG SL PRN for CHEST PAIN, #25 09/18/16 Discontinued Reported Medications Citalopram Hydrobromide (CITALOPRAM HBR) 20 Mg Tablet, 20 MG PO DAILY, TAB 03/07/17 DOMENICO DE LA VEGA APRN Jul 02, 2019 12:35
--- NOTE | 2019-07-02 14:34 | NUR ---
Pt left unit by wheelchair via private vehicle at approx 1435. Pt accompanied by . Pt VSS, discharge paperwork discussed and sent with pt at time of discharge.
[2019-07-02] MEDS ORDERED: LOSARTAN POTASSIUM 50 MG TABLET. PO SCH (21:00)
--- NOTE | 2019-07-03 12:29 | PDOC3 ---
Discharge Summary Visit Information Date of Admission: Jul 01, 2019 Date of Discharge: Jul 02, 2019 Admitting Diagnosis: Right inguinal hernia, umbilical hernia Final Diagnosis Right inguinal hernia, umbilical hernia Brief Hospital Course Allergies Allergies Coded Allergies Type Severity Reaction Last Updated Verified No Known Drug Allergies 07/01/19 No Vital Signs Vital Signs Date Time Temp Pulse Resp B/P (MAP) Pulse Ox O2 Delivery O2 Flow Rate FiO2 07/02/19 11:00 97.6 64 16 119/68 (85) 94 Room Air 97.6 Brief Hospital Course Mr. Briones is a 79 old male who underwent Right inguinal hernia repair with m esh, umbilical hernia repair with mesh. postoperatively tolerating diet, ambulating, and pain managed. Discharge home Discharge Information Condition at Discharge: Stable Follow Up: Weeks (2) Disposition/Orders: D/C to Home w/ HH Scheduled Apixaban (Eliquis) 5 Mg Tablet, 5 MG PO BID for blood thinner, (Reported) Entered as Reported by: SAVAGE HAMMONDS on 07/01/19 0712 Last Taken: Unknown Dose on 06/27/19 Last Action: Continued on 07/01/19 0946 by BOBBY MCKENNA Atorvastatin Calcium (Atorvastatin Calcium) 10 Mg Tablet, 10 MG PO HS, #90 (Reported) Entered as Reported by: JOSÉ MIGUEL CORTES on 09/18/162010 Last Taken: Unknown Dose on 06/30/19 Last Action: Continued on 07/01/19 0946 by BOBBY MCKENNA Glyburide (Glyburide) 5 Mg Tablet, 5 MG PO HS, #90 (Reported) Entered as Reported by: JOSÉ MIGUEL CORTES on 09/18/162022 Last Taken: Unknown Dose on 06/30/19 Last Action: Continued on 07/01/19 0946 by BOBBY MCKENNA Lisinopril (Lisinopril) 5 Mg Tablet, 1 TAB PO DAILY for blood pressure, #30 Ref 5 (Reported) Entered as Reported by: JESSICA LYLE on 02/06/19 0831 Last Taken: Unknown Dose on 06/30/19 Last Action: Continued on 07/01/19 0946 by BOBBY MCKENNA Losartan Potassium (Losartan Potassium) 100 Mg Tablet, 100 MG PO HS for 30 Days, (Reported) Entered as Reported by: JOSÉ MIGUEL CORTES on 09/18/162022 Last Taken: Unknown Dose on 06/30/19 Last Action: Converted on 07/01/19945 by BOBBY MCKENNA Metformin Hcl (Metformin Hcl) 500 Mg Tablet, 500 MG PO BIDWMEALS for ANTI- DIABETIC, Ref 0 (Reported) Entered as Reported by: NICOLE ZHU on 07/01/19 1144 Last Action: New Order on 07/01/191143 by NICOLE ZHU Metoprolol Tartrate (Metoprolol Tartrate) 25 Mg Tablet, 25 MG PO BID for FOR HYPERTENSION, #60 Ref 0 (Reported) Entered as Reported by: JOSÉ MIGUEL CORTES on 09/18/162022 Last Taken: Unknown Dose on 06/30/192099 Last Action: Continued on 07/01/19945 by BOBBY MCKENNA Scheduled PRN Hydrocodone Bit/Acetaminophen (Hydrocodone-Apap 5-325 ) 1 Tab Tablet, 1 TAB PO PRN Q4HRS PRN for MILD PAIN 1-3, #30 Ref 0 Prescribed by: Domenico Mayorga on 07/02/19 1231 Nitroglycerin (Nitrostat) 0.4 Mg Tab.subl, 0.4 MG SL for CHEST PAIN, #25 (Reported) Entered as Reported by: JOSÉ MIGUEL CORTES on 09/18/162010 Last Action: HELD on 07/01/19945 by BOBBY MCKENNA Discontinued Medications Citalopram Hydrobromide (Citalopram Hbr) 20 Mg Tablet, 20 MG PO DAILY, (Reported) Entered as Reported by: ANA M HINSON on 03/07/17 0747 Last Action: Discontinued on 07/01/19711 by DOMENICO GEE APRN Jul 03, 2019 12:29
== END 2019-07-02 14:37 | disposition home or self-care (01) ==
LOC: SURG 06:19 → 5 SOUTH 10:00
PROVIDERS: ADMIT Surgery; ATTEND Surgery
PROC: 0YU507Z Supplement Right Inguinal Region with Autologous Tissue Substitute, Open Approach (ICD-10-PCS; principal; 2019-07-01 07:30)
PROC: 0WUF07Z Supplement Abdominal Wall with Autologous Tissue Substitute, Open Approach (ICD-10-PCS; 2019-07-01 07:30)
DX: K40.90 Unilateral inguinal hernia, without obstruction or gangrene, not specified as recurrent (principal)
CPT/HCPCS: 49505; 49585; 82962; 96374; 96375; 96376; 97116; 97162; A7015; C1781; G0378; G0379; J0171; J0696; J1100; J1170; J1815; J2001; J2270; J2370; J2405; J2704; J2710; J3010; J3490; J7040; J7120; J2250